=== PATIENT | male | born 1960 | race Caucasian/White ===

== ENCOUNTER → 2020-04-18 10:38 | Outpatient (BNVA) | payer MEDICARE, MEDICAID, SELFPAY | PROVIDERS: Family Provider Nurse Practitioner; PCP Nurse Practitioner; Visit Provider Nurse Practitioner Family | DX: M54.2 Cervicalgia (principal); G89.29 Other chronic pain; R20.2 Paresthesia of skin; R63.4 Abnormal weight loss; I10 Essential (primary) hypertension; E78.2 Mixed hyperlipidemia; Z86.73 Personal history of transient ischemic attack (TIA), and cerebral infarction without residual deficits; R42 Dizziness and giddiness; Z12.5 Encounter for screening for malignant neoplasm of prostate; Z12.11 Encounter for screening for malignant neoplasm of colon; F41.9 Anxiety disorder, unspecified; M17.0 Bilateral primary osteoarthritis of knee; E03.8 Other specified hypothyroidism; K21.9 Gastro-esophageal reflux disease without esophagitis | CPT/HCPCS: 80053; 80061; 84443; 85025; G0103 ==

== ENCOUNTER → 2020-04-19 10:21 | Outpatient (BNVA) | payer MEDICARE, MEDICAID, SELFPAY | PROVIDERS: Family Provider Nurse Practitioner; PCP Nurse Practitioner; Visit Provider Nurse Practitioner Family | DX: R73.9 Hyperglycemia, unspecified (principal) | CPT/HCPCS: 83036 ==

== ENCOUNTER → 2020-04-25 15:03 | Outpatient (BNVA) | payer MEDICARE, MEDICAID, SELFPAY | PROVIDERS: Family Provider Nurse Practitioner; PCP Nurse Practitioner; Visit Provider Nurse Practitioner Family | DX: M54.2 Cervicalgia (principal); R63.4 Abnormal weight loss | CPT/HCPCS: 71046; 72040 ==

== ENCOUNTER 2020-05-07 14:35 | Outpatient (CLI) | payer MEDICARE, MEDICAID, SELFPAY ==
--- NOTE | 2020-05-07 15:00 | USCV_ITS ---
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 Technologist: Gisela Khan Exam Location: [facility] [place] Indication: HTN Risk Factors: Previous Vascular Surgery: Right Brachial BP: / Left Brachial BP: / Right Left Velocity (cm/s) Spectral Plaque Velocity (cm/s) Spectral Plaque Syst/Diast Broadening Syst/Diast Broadening 94.70/ 24.40 Prox CCA 111.40/ 37.50 87.10/ 27.60 Mid CCA 93.70 / 28.70 69.60/ 21.30 Distal CCA 90.60 / 34.20 55.50/ 26.50 Prox ICA 60.30 / 21.10 66.90/ 30.70 Mid ICA 65.80 / 33.30 63.60/ 32.90 Distal ICA 52.30 / 25.50 70.10 ECA 91.90 0.71 ICA/CCA 0.59 Antegrade Vertebral Antegrade 41.90/ 16.30 cm/s 30.90/ 15.10 cm/s Tri Subclavian Tri 74.20 69.70 CONCLUSIONS Right ICA stenosis <50%. Mild atheromatous plaque right carotid bulb/ICA. Left ICA stenosis <50%. Moderate atheromatous plaque left carotid bulb/ICA. Normal antegrade Doppler flow noted in the right vertebral artery. Normal antegrade Doppler flow noted in the left vertebral artery. Tommy Meredith MD (Electronically Signed) Final Date: 07 May 2020 17:50 S
== END 2020-05-07 14:36 | disposition home or self-care (01) ==
PROVIDERS: PCP Nurse Practitioner Family; Visit Provider Nurse Practitioner Family
DX: I10 Essential (primary) hypertension (principal); I65.23 Occlusion and stenosis of bilateral carotid arteries
CPT/HCPCS: 93880

== ENCOUNTER → 2020-05-17 11:20 | Outpatient (BNVA) | payer MEDICARE, MEDICAID, SELFPAY | PROVIDERS: PCP Nurse Practitioner Family; Visit Provider Surgery | DX: Z12.11 Encounter for screening for malignant neoplasm of colon (principal); Z20.822 Contact with and (suspected) exposure to COVID-19 | CPT/HCPCS: 87635 ==

== ENCOUNTER 2020-05-24 10:00 | Day surgery (SDC) | payer MEDICARE, MEDICAID, SELFPAY ==
[2020-05-18 12:37] VITALS: BMI 44.9
[2020-05-24 10:26] VITALS: BP 124/95; PULSE 102; RESP 16; TEMP 36.7; O2SAT 98
[2020-05-24] MEDS: sodium chloride 0.9% 1,000 ML 30 ML IV (11:23)
[2020-05-24 11:45] LABS: Glucose Point of Care 163 mg/dL (70-110)
--- NOTE | 2020-05-24 11:45 | ANES.PREANE2 ---
Pre-Anesthetic Assessment Pre-Anesthetic Assessment: Height/Weight: Height 1.78 m Weight 141.974 kg Temp Pulse Resp BP Pulse Ox 98.0 F 102 H 16 124/95 98 05/24/20 10:26 05/24/20 10:26 05/24/20 10:26 05/24/20 10:26 05/24/20 10:26 Preop Diagnosis: screening colonoscopy Proposed Procedure: Operation Date: 05/24/20 11:30 Proposed Procedures p Colonoscopy 61719 z12.11(Not Applicable) - Fuentes Keene MD Was Beta Ramesh taken within 24 hours: N/A Was Clonidine taken within 24 hours: N/A Last intake: Intake Last Liquid Date 05/23/20 Last Liquid Time 23:00 Last Solid Date 05/22/20 Last Solid Time 20:00 Social: Social History: No alcohol and No tobacco Exam: Pre-Anes Outpt Exam: alert, oriented x 3, clear to auscultation bilaterally and regular rate & rhythm Airway: Submandibular: WNL Cervical ROM: WNL MP: 2 Additional comments: Poor dentition, missing several CV/HEM: CV/HEM: HTN Metabolic: Metabolic: DM, Morbid obesity and Thyroid Neuropsych: Neuropsych: Anxiety and TIA Anesthetic Plan: ASA status: 3 Anesthesia: MAC Risk of > 500 ml blood loss (7ml/kg in children): No Meds/Allergies Current Medications: Current Medications Generic Name Dose Route Start Last Admin Trade Name Freq PRN Reason Stop Dose Admin Sodium Chloride 1,000 mls @ 30 ml s/hr 05/24/20 10:30 05/24/20 11:23 Sodium Chloride 0.9% IV 05/25/20 10:29 30 mls/hr .Q24H MISHA Administration PFSH Anesthesia PFSH: Medical History Adult onset hypothyroidism Anxiety Atherosclerosis Essential hypertension GERD (gastroesophageal reflux disease) Mixed hyperlipidemia Osteoarthritis Surgical History History of hernia repair Family History Other Cancer Diabetes Social History Smoking and tobacco status: never smoked Second hand smoke exposure: No Alcohol intake: never Lives independently: Yes Household members: spouse Housing: House Marital status: History of recent travel: No Data Anesthesia Other Labs: Laboratory Results - last 48 hr 05/24/20 11:25 POC Glucose 163 H Cardiac Studies: No Data to Display
[2020-05-24 12:05] VITALS: BP 98/68; PULSE 90; RESP 18; TEMP 36.4; O2SAT 97
--- NOTE | 2020-05-24 12:08 | ANE.PACU2 ---
Inpatient post-anesthesia follow up: Airway intact: Yes Vital signs: Temperature 98.0 F Pulse Rate 102 Respiratory Rate 16 Blood Pressure 124/95 Pulse Oximetry 98 Oxygen Delivery Me thod Room Air Oxygen Flow Rate Fraction of Inspir ed Oxygen Hydration adequate: Yes Nausea and vomiting: No Pain level: 1 Mental status: Baseline
[2020-05-24 12:20] VITALS: BP 110/84; PULSE 82; RESP 18; TEMP 36.6; O2SAT 96
--- NOTE | 2020-05-24 14:37 | ANE.PACU2 ---
Inpatient post-anesthesia follow up: Airway intact: Yes Vital signs: Temperature 97.8 F Pulse Rate 82 Respiratory Rate 18 Blood Pressure 110/84 Pulse Oximetry 96 Oxygen Delivery Me thod Room Air Oxygen Flow Rate 2 Fraction of Inspir ed Oxygen Hydration adequate: Yes Nausea and vomiting: No Pain level: 1 Mental status: Baseline
--- NOTE | 2020-05-24 14:40 | W.PM.OPSFHP ---
Same Day Surgery H&P Indication for Procedure/HPI DATE OF PROCEDURE: May 24, 2020 CHIEF COMPLAINT/INDICATIONFOR SURGICAL PROCEDURE: screening PREOP DIAGNOSIS: screening colonoscopy PLANNED PROCEDRUE: Operation Date: 05/24/20 11:30 Proposed Procedures p Colonoscopy 39993 z12.11(Not Applicable) - Fuentes Keene MD Medications/Allergies* Home Medications Medication Instructions Recorded Confirmed Type ascorbate calcium (vitamin C) 500 500 mg PO DAILY 05/08/20 05/24/20 History mg tablet cholecalciferol (vitamin D3) 25 25 mcg PO DAILY 05/08/20 05/24/20 History mcg (1,000 unit) capsule zinc 50 mg tablet 50 mg PO DAILY 05/08/20 05/24/20 History aspirin 81 mg PO DAILY 05/24/20 05/24/20 History Allergies/Adverse Reactions Allergy/AdvReac Type Severity Reaction Status Date / Time No Known Allergies Allergy Verified 05/24/20 10:48 Pertinent History/Comorbid Conditions* Medical History (Updated 05/08/20 @ 11:18 by SILAS Martinez) Adult onset hypothyroidism Anxiety Atherosclerosis Essential hypertension GERD (gastroesophageal reflux disease) Mixed hyperlipidemia Osteoarthritis Surgical History (Updated 05/24/20 @ 12:04 by Fuentes Keene MD) History of hernia repair Status post colonoscopy (05/24/20) polyps x 2 , internal hemorrhoids Family History (Updated 07/04/19 @ 14:04 by Melba Ferraro LPN) Diabetes Cancer Social History Smoking and tobacco status: never smoked Second hand smoke exposure: No Alcohol intake: never Lives independently: Yes Household members: spouse Housing: House Marital status: History of recent travel: No Pertinent Exam Findings alert, oriented x 3 and regular rate & rhythm Recommendations Surgery/Procedure today Coding Level of Care Code Acute Test Administrator for Chg Alberto
== END 2020-05-24 12:55 | disposition home or self-care (01) ==
PROVIDERS: PCP Nurse Practitioner Family; Visit Provider Surgery
PROC: 0DJD8ZZ Inspection of Lower Intestinal Tract, Via Natural or Artificial Opening Endoscopic (ICD-10-PCS; CPT 45378; principal; 2020-05-24 11:30)
DX: Z12.11 Encounter for screening for malignant neoplasm of colon (principal); D12.2 Benign neoplasm of ascending colon; K64.8 Other hemorrhoids; E03.9 Hypothyroidism, unspecified; F41.9 Anxiety disorder, unspecified; I10 Essential (primary) hypertension; K21.9 Gastro-esophageal reflux disease without esophagitis; E78.2 Mixed hyperlipidemia; M19.90 Unspecified osteoarthritis, unspecified site
CPT/HCPCS: 36416; 45380; 82962; 88305; 96360; J2704; J7030

== ENCOUNTER 2020-06-28 11:21 | Outpatient (CLI) | payer MEDICARE, MEDICAID, SELFPAY ==
--- NOTE | 2020-06-28 07:15 | USCV_ITS ---
Feliberto Tsai Age: 59 Gender: M : 1960 Exam Date: 06/28/2020 11:40 Ordering Phys: Livia Tong MD [email or web address]) Technologist: Ana Diaz [place] [facility] [place]: Cardiac murmur BP: 116 / 83 HR: 74 Rhythm: Sinus Technical Quality: Suboptimal MEASUREMENTS (Male / Female) Normal Values 2D ECHO LV Diastolic Diameter PLAX 4.4 cm 4.2 - 5.9 / 3.9 - 5.3 cm LV Systolic Diameter PLAX 2.8 cm LV Chamber Size 4.3 cm IVS Diastolic Thickness 1.4 cm 0.6 - 1.0 / 0.6 - 0.9 cm IVS Systolic Thickness 1.4 cm LVPW Diastolic Thickness 1.6 cm 0.6 - 1.0 / 0.6 - 0.9 cm LVPW Systolic Thickness 1.6 cm RV Chamber Size 1.7 cm LVOT Diameter 2.2 cm LV Ejection Fraction 2D Teich 68.6 % LV Ejection Fraction MOD 2C 55.4 % LV Ejection Fraction 2C AL 58.7 % LA Diameter 2.6 cm LA Width 3.5 cm LA Height 6.0 cm RA Width 2.7 cm RA Height 5.0 cm Aorta at Sinotubular Diameter 3.3 cm M-MODE LV Diastolic Diameter MM 5.9 cm 4.2 - 5.9 / 3.9 - 5.3 cm LV Systolic Diameter MM 4.3 cm LV Ejection Fraction MM Teich 52.4 % IVS Diastolic Thickness MM 1.4 cm 0.6 - 1.0 / 0.6 - 0.9 cm IVS Systolic Thickness MM 1.3 cm LVPW Diastolic Thickness MM 1.4 cm 0.6 - 1.0 / 0.6 - 0.9 cm LVPW Systolic Thickness MM 1.9 cm Aortic Annulus Diameter 3.7 cm LA Ao Ratio MM 0.8 MV E Point Septal Separation 0.8 cm DOPPLER AV Peak Velocity 255.3 cm/s LVOT Peak Velocity 99.0 cm/s AV Area Cont Eq vti 1.6 cm squared AV Area Cont Eq pk 1.4 cm squared MV Area PHT 4.1 cm squared Mitral E to A Ratio 1.0 MV E' Velocity 47.0 cm/s Mitral E to MV E' Ratio 7.9 Mitral E to LV E' Lateral Ratio 6.4 Mitral E to LV E' Septal Ratio 10.4 TV Peak E Velocity 45.0 cm/s Right Atrial Pressure 3.0 mmHg PV Peak Velocity 65.0 cm/s RV Acceleration Time 0.1 s RV Ejection Time 0.3 s RV AcT/ET 0.3 FINDINGS Left Ventricle Normal left ventricular cavity size. Mildly decreased left ventricular systolic function. Left ventricular ejection fraction is estimated at 45-50 %. This study is inadequate for estimation of regional wall motion normality. Normal diastolic function. Right Ventricle Normal right ventricular size and systolic function. RVSP could not be calculated due to incomplete tricuspid regurgitation velocity profile. Right Atrium Normal right atrial size. Right atrial pressure estimated at 3 mmHg. Left Atrium Mildly increased left atrial size. Mitral Valve Structurally normal mitral valve. No mitral valve stenosis. Trace mitral valve regurgitation. Aortic Valve Aortic valve not well visualized. Mild aortic valve stenosis, peak velocity 2.6 m/s, peak gradient 28 mmHg, mean gradient 14.3 mmHg, REBA 1.6 cm squared. Trace aortic valve regurgitation. Tricuspid Valve Pulmonic Valve Pulmonic valve not well visualized. No pulmonary valve stenosis. Pericardium No pericardial effusion. Aorta Normal-sized aortic root. Normal-sized inferior vena cava. CONCLUSIONS 1. This is a technically difficult study. 2. Normal left ventricular cavity size. Mildly decreased left ventricular systolic function. Left ventricular ejection fraction is estimated at 45-50 %. This study is inadequate for estimation of regional wall motion normality. Normal diastolic function. 3. Normal right ventricular size and systolic function. 4. Mild aortic valve stenosis, peak velocity 2.6 m/s, peak gradient 28 mmHg, mean gradient 14.3 mmHg, REBA 1.6 cm squared. Trace aortic valve regurgitation. 5. Repeat study is recommended with ultrasound enhancing agent. 6. No prior similar studies to compare. Livia Tong MD (Electronically Signed) Final Date: 29 Jun 2020 13:07 S
== END 2020-06-28 11:22 | disposition home or self-care (01) ==
LOC: RAD 11:26
PROVIDERS: PCP Nurse Practitioner Family; Visit Provider Internal Medicine Cardiovascular Disease
DX: R01.1 Cardiac murmur, unspecified (principal); I35.0 Nonrheumatic aortic (valve) stenosis
CPT/HCPCS: 93306

== ENCOUNTER 2020-07-09 08:46 | Outpatient (CLI) | payer MEDICARE, MEDICAID, SELFPAY ==
--- NOTE | 2020-07-09 09:11 | ECG_ITS ---
[facility] Test Date: 2020-07-09 Pat Name: Feliberto Tsai Department: Room: Gender: Male H[employer]icultural [employer]ty [employer]er Field: : 1960 Requested By: Livia Tong Order Number: [id number] Chelly MD: Livia Tong M.D. Interpretive Statements NAME OF STUDY: LEXISCAN SESTAMIBI STRESS TEST INDICATION: Dyspnea on exertion PROCEDURE: At the baseline, the blood pressure was 158/106 mmHg with a heart rate of 81 bpm. The electrocardiogram showed normal sinus rhythm, normal axis with nonspecific ST depression. The Lexiscan was infused over a period of 20 seconds. A total of 0.4 milligrams of Lexiscan was infused. The stress phase was continued for a total of 5 minutes. Heart rate at the end of the stress phase was 98 bpm with a blood pressure of 169/102 mmHg. The EKG at the peak infusion revealed sinus rhythm with no significant ST-T wave changes. Sestamibi was injected 20 seconds after the Lexiscan infusion. Blood pressure at the end of the recovery phase was 179/101 mmHg with a heart rate of 90 beats per minute. CONCLUSION: 1. No significant EKG changes with the LexiScan infusion. 2. No LexiScan induced chest pain or cardiac arrhythmia. 3. Baseline hypertension with normal blood pressure and heart rate response. 4. Sestamibi/sestamibi perfusion scan pending; see separate report. Electronically Signed On 07-12-2020 17:33:09 CDT by Livia Tong M.D. [id number]
--- NOTE | 2020-07-09 09:11 | NMCV_ITS ---
NM thelma perf SPECT r/s* [id number] Feliberto Tsai Age: 59 Gender: M : 1960 Exam Date: 07/09/2020 09:54 Ordering Phys: Livia Tong MD ([email or web address]) Technologist: AURORA Nesbitt Exam Location: [facility] Indications: SHORTNESS OF BREATH STRESS TEST Please see separate stress test report in [facility] for full findings IMAGE PROTOCOL Rest/Stress 1 Lexiscan Day Radiopharmaceutical Dose (mCi) Administration Site Administered by Rest: Tc-99m 10.7 IV AURORA Nesbitt Sestamibi Stress:Tc-99m 33.0 IV AURORA Avitia Sestamibi Rest: 09-Jul-2020 60 Discovery 630 Stress: 09-Jul-2020 30 Discovery 630 0.4mg Lexiscan. Images obtained in supine and prone position. SPECT RESULTS Technical Quality: Excellent Raw Data Analysis: Normal Image Corrections: No attenuation or motion correction applied Summed Stress Score: 3 Summed Rest Score: 1 Summed Difference Score: 2 PERFUSION FINDINGS Small sized perfusion abnormality of mild severity of basal to mid inferior and apical lateral finnegan on rest images. There is subtle reversibility in apical lateral finnegan on prone stress images. FUNCTIONAL RESULTS (calculated via Gated SPECT) Stress Image LV EF (%): 69 Stress EDV (mL):108 TID: 0.96 Stress ESV (mL):34 FUNCTIONAL FINDINGS: The left ventricle is normal in size. Transient Ischemia Dilatation of 0.96. There is normal left ventricular systolic function. The left ventricular ejection fraction is normal with a value of 69%. There is normal left ventricular wall thickening with no regional wall motion abnormality. Normal end-diastolic and end-systolic volumes. IMPRESSIONS 1. Small sized reversible perfusion abnormality of mild severity of apical lateral wall and predominantly fixed perfusion abnormality of basal to mid inferior finnegan. 2. This may represent old myocardial infarction in right coronary artery territory/circumflex artery territory with minimal john-infarct ischemia. Attenuation artifact cannot be completely ruled out. 3. Overall left ventricular systolic function is normal without regional wall motion abnormalities. 4. The left ventricular ejection fraction is normal with a value of 69%. 5. No prior similar studies to compare. Livia Tong MD (Electronically Signed) Final Date: 12 Jul 2020 17:42 S
[2020-07-09 09:13] VITALS: BMI 44.3
[2020-07-09] MEDS: regadenoson 0.4 Mg/5 ml Syringe IVP (10:56)
[2020-07-09 11:08] VITALS: BP 179/101; PULSE 94
== END 2020-07-09 08:47 | disposition home or self-care (01) ==
LOC: CDL 08:48
PROVIDERS: PCP Nurse Practitioner Family; Visit Provider Internal Medicine Cardiovascular Disease
DX: R06.00 Dyspnea, unspecified (principal)
CPT/HCPCS: 78452; 93017; A9500; J2785

== ENCOUNTER → 2020-07-30 09:20 | Outpatient (BNVA) | payer MEDICARE, MEDICAID, SELFPAY | PROVIDERS: PCP Nurse Practitioner Family; Visit Provider Nurse Practitioner Family | DX: E11.9 Type 2 diabetes mellitus without complications (principal); E78.2 Mixed hyperlipidemia; E03.8 Other specified hypothyroidism; I10 Essential (primary) hypertension; F41.9 Anxiety disorder, unspecified; K21.9 Gastro-esophageal reflux disease without esophagitis; M17.0 Bilateral primary osteoarthritis of knee | CPT/HCPCS: 80053; 80061; 83036; 84443; 85025 ==

== ENCOUNTER → 2020-11-02 10:53 | Outpatient (BNVA) | payer MEDICARE, MEDICAID, SELFPAY | PROVIDERS: PCP Nurse Practitioner Family; Visit Provider Nurse Practitioner Family | DX: I10 Essential (primary) hypertension (principal); E11.9 Type 2 diabetes mellitus without complications; K21.9 Gastro-esophageal reflux disease without esophagitis; F41.9 Anxiety disorder, unspecified; E03.8 Other specified hypothyroidism; M17.0 Bilateral primary osteoarthritis of knee; E78.2 Mixed hyperlipidemia | CPT/HCPCS: 80053; 80061; 83036; 84443; 85025 ==

== ENCOUNTER → 2021-01-29 09:09 | Outpatient (BNVA) | payer MEDICARE, MEDICAID, SELFPAY | PROVIDERS: PCP Nurse Practitioner Family; Visit Provider Nurse Practitioner Family | DX: Z12.5 Encounter for screening for malignant neoplasm of prostate (principal); E78.2 Mixed hyperlipidemia; E03.8 Other specified hypothyroidism; E11.9 Type 2 diabetes mellitus without complications; R42 Dizziness and giddiness; F41.9 Anxiety disorder, unspecified; I10 Essential (primary) hypertension; K21.9 Gastro-esophageal reflux disease without esophagitis; M17.0 Bilateral primary osteoarthritis of knee | CPT/HCPCS: 80053; 80061; 83036; 84443; 85025; G0103 ==

== ENCOUNTER → 2021-07-19 10:02 | Outpatient (BNVA) | payer MEDICARE, MEDICAID, SELFPAY | PROVIDERS: PCP Nurse Practitioner Family; Visit Provider Nurse Practitioner Family | DX: F41.9 Anxiety disorder, unspecified (principal); M54.50 Low back pain, unspecified; M25.552 Pain in left hip; E11.9 Type 2 diabetes mellitus without complications; E78.2 Mixed hyperlipidemia; I10 Essential (primary) hypertension; E03.8 Other specified hypothyroidism; K21.9 Gastro-esophageal reflux disease without esophagitis; M17.0 Bilateral primary osteoarthritis of knee | CPT/HCPCS: 80053; 80061; 83036; 84443; 85025 ==

== ENCOUNTER → 2021-07-24 10:38 | Outpatient (BNVA) | payer MEDICARE, MEDICAID, SELFPAY | PROVIDERS: PCP Nurse Practitioner Family; Visit Provider Nurse Practitioner Family | DX: M25.552 Pain in left hip (principal); M54.50 Low back pain, unspecified | CPT/HCPCS: 72100; 73502 ==

== ENCOUNTER → 2021-10-29 09:39 | Outpatient (BNVA) | payer MEDICARE, MEDICAID, SELFPAY | PROVIDERS: PCP Nurse Practitioner Family; Visit Provider Nurse Practitioner Family | DX: E11.9 Type 2 diabetes mellitus without complications (principal); E78.2 Mixed hyperlipidemia | CPT/HCPCS: 80053; 80061; 83036; 84443; 85025 ==

== ENCOUNTER → 2022-04-28 09:36 | Outpatient (BNVA) | payer MEDICARE, MEDICAID, SELFPAY | PROVIDERS: PCP Nurse Practitioner Family; Visit Provider Nurse Practitioner Family | DX: E11.9 Type 2 diabetes mellitus without complications (principal) | CPT/HCPCS: 80053; 80061; 83036; 84443; 85025 ==

== ENCOUNTER 2022-05-26 12:24 | Outpatient (CLI) | payer MEDICARE, MEDICAID, SELFPAY ==
--- NOTE | 2022-05-26 13:00 | USCV_ITS ---
Feliberto Tsai Age: 61 Gender: M : 1960 Exam Date: 05/26/2022 13:02 Ordering Phys: Chhaya Kraft Technologist: Exam Location: [facility] [place] Indication: as BP: 118 / 72 HR: 86 Rhythm: Sinus Technical Quality: Adequate MEASUREMENTS (Male / Female) Normal Values 2D ECHO LV Diastolic Diameter PLAX 4.5 cm 4.2 - 5.9 / 3.9 - 5.3 cm LV Systolic Diameter PLAX 2.9 cm IVS Diastolic Thickness 1.2 cm 0.6 - 1.0 / 0.6 - 0.9 cm IVS Systolic Thickness 2.0 cm LVPW Diastolic Thickness 1.1 cm 0.6 - 1.0 / 0.6 - 0.9 cm LVPW Systolic Thickness 1.5 cm LVOT Diameter 2.1 cm LV Ejection Fraction 2D Teich 64.1 % LV Ejection Fraction MOD 2C 74.6 % LV Ejection Fraction 2C AL 74.4 % LA Diameter 4.0 cm IVC Diameter 1.6 cm M-MODE Aortic Annulus Diameter 4.1 cm LA Ao Ratio MM 0.9 MV E Point Septal Separation 0.8 cm DOPPLER AV Peak Velocity 322.0 cm/s LVOT Peak Velocity 118.7 cm/s AV Area Cont Eq vti 1.4 cm squared AV Area Cont Eq pk 1.3 cm squared MV Area PHT 5.0 cm squared Mitral E to A Ratio 0.6 MV E' Velocity 29.5 cm/s Mitral E to MV E' Ratio 7.9 Mitral E to LV E' Lateral Ratio 7.5 Mitral E to LV E' Septal Ratio 8.4 TR Peak Velocity 253.2 cm/s TR Peak Gradient 25.6 mmHg TV Peak E Velocity 98.0 cm/s Right Atrial Pressure 3.0 mmHg Pulmonary Artery Systolic Pressu 28.6 mmHg RV Acceleration Time 0.1 s FINDINGS Left Ventricle Left ventricle is normal in size. LV systolic function is normal with EF of 55-60%. No regional wall motion abnormalities are seen. Grade 1 diastolic dysfunction Right Ventricle Normal in size and function Right Atrium Normal in size Left Atrium Normal in size Mitral Valve Structurally normal mitral valve Aortic Valve Aortic valve is thickened. Moderate aortic stenosis with aortic valve area of 0.7 cm squared and mean gradient across aortic valve of 16 mmHg. Tricuspid Valve Mild tricuspid regurgitation. Pulmonary artery systolic pressure is normal. Pulmonic Valve Not well-visualized Pericardium Normal Aorta Normal in size IVC Appears to be normal CONCLUSIONS LV systolic function is normal with EF of 60 to 65% Grade 1 diastolic dysfunction Aortic valve is thickened. Moderate aortic stenosis with valve area of 0.7 cm squared and mean gradient across aortic valve of 16 mmHg Mild tricuspid regurgitation Compared to prior echocardiogram from 2020, aortic stenosis has worsened and is moderate now. LV systolic function is improved compared to reported on 2020 echo. Donavan Henderson MD (Electronically Signed) Final Date: 07 June 2022 14:27 S
== END 2022-05-26 12:25 | disposition home or self-care (01) ==
LOC: RAD 12:26
PROVIDERS: PCP Nurse Practitioner Family; Visit Provider Nurse Practitioner Family
DX: R01.1 Cardiac murmur, unspecified (principal); I08.2 Rheumatic disorders of both aortic and tricuspid valves
CPT/HCPCS: 80053; 80061; 83036; 84443; 85025; 93306

== ENCOUNTER → 2022-06-18 10:37 | Outpatient (BNVA) | payer MEDICARE, MEDICAID, SELFPAY | PROVIDERS: PCP Nurse Practitioner Family; Visit Provider Internal Medicine Cardiovascular Disease | DX: I35.0 Nonrheumatic aortic (valve) stenosis (principal); I10 Essential (primary) hypertension; Z79.82 Long term (current) use of aspirin | CPT/HCPCS: 99213 ==

== ENCOUNTER → 2022-10-31 11:02 | Outpatient (BNVA) | payer MEDICARE, MEDICAID, SELFPAY | PROVIDERS: PCP Nurse Practitioner Family; Visit Provider Nurse Practitioner Family | DX: K21.9 Gastro-esophageal reflux disease without esophagitis (principal); E11.9 Type 2 diabetes mellitus without complications; I10 Essential (primary) hypertension; E03.8 Other specified hypothyroidism; M17.0 Bilateral primary osteoarthritis of knee; F41.9 Anxiety disorder, unspecified; E78.2 Mixed hyperlipidemia; I35.0 Nonrheumatic aortic (valve) stenosis; R01.1 Cardiac murmur, unspecified; I70.90 Unspecified atherosclerosis; E83.51 Hypocalcemia; Z12.5 Encounter for screening for malignant neoplasm of prostate | CPT/HCPCS: 80053; 80061; 83036; 84443; 85025 ==

== ENCOUNTER → 2023-04-29 13:40 | Outpatient (BNVA) | payer MEDICARE, MEDICAID, SELFPAY | PROVIDERS: PCP Nurse Practitioner Family; Visit Provider Nurse Practitioner Family | DX: M17.11 Unilateral primary osteoarthritis, right knee (principal); M25.561 Pain in right knee; M25.562 Pain in left knee; E11.9 Type 2 diabetes mellitus without complications; R35.1 Nocturia | CPT/HCPCS: 73562; 80053; 80061; 83036; 84443; 85025 ==

== ENCOUNTER → 2023-06-16 11:45 | Outpatient (BNVA) | payer MEDICARE, MEDICAID, SELFPAY | PROVIDERS: PCP Nurse Practitioner Family; Visit Provider Internal Medicine Cardiovascular Disease | DX: I10 Essential (primary) hypertension (principal); E78.2 Mixed hyperlipidemia; I35.0 Nonrheumatic aortic (valve) stenosis; R06.00 Dyspnea, unspecified; F41.9 Anxiety disorder, unspecified; E11.9 Type 2 diabetes mellitus without complications; Z79.84 Long term (current) use of oral hypoglycemic drugs | CPT/HCPCS: 99213 ==

== ENCOUNTER → 2023-07-22 15:23 | Outpatient (BNVA) | payer MEDICARE, MEDICAID, SELFPAY | PROVIDERS: PCP Nurse Practitioner Family; Visit Provider Specialist | DX: M17.0 Bilateral primary osteoarthritis of knee (principal); E66.01 Morbid (severe) obesity due to excess calories; Z68.41 Body mass index [BMI] 40.0-44.9, adult | CPT/HCPCS: 73560; 73565 ==

== ENCOUNTER 2023-08-24 07:36 | Outpatient (CLI) | payer MEDICARE, MEDICAID, SELFPAY ==
--- NOTE | 2023-08-24 08:00 | MR_ITS ---
WS: [id number] MRI RIGHT KNEE HISTORY: pain Patient in pain during the examination the study was shortened due to discomfort. COMPARISON: Radiograph 07/22/2023 Anterior cruciate ligament: Thickening and mucoid degeneration throughout the ACL. Normal course of t he ACL. The very distal ACL attachment is difficult to visualize. No definite tear. Posterior cruciate ligament: Intact. Medial collateral ligament: Intact. Posterior lateral corner structures: Intact. There is a small amount of fluid along the popliteus ten don but no tear identified. Medial menisci: Horizontal tear in the posterior meniscus extends to the intra-articular surface. The re is also intrasubstance degeneration extending into the meniscal root. Anterior horn appears normal . Lateral meniscus: Intact. Normal signal, size and shape. Extensor mechanism: Distal quadriceps tendon and patellar tendons are intact. Fluid and soft tissue: No joint effusion. Tiny amount of fluid consistent with a Handy's cyst. Osseous and articular structures: Patellofemoral compartment: Minimal narrowing of the lateral patellofemoral junction. The cartilage i s well-preserved. No marrow edema. Medial compartment: Mild narrowing of the medial compartment. There is thinning and fissuring of the cartilage. Greatest along the weightbearing surface of the femoral condyle. No underlying marrow josr a. No osteochondral lesion. Lateral compartment: Mild narrowing of the lateral compartment. Cartilage is well-preserved. No marro w edema. MR/MR knee RT wo con* [id number] IMPRESSION: 1. Horizontal tear posterior horn medial meniscus extends to the intra-articul ar surface. 2. Mucoid degeneration within the ACL. No tear identified. The very distal ACL is poorly visualized. 3. Small amount of fluid in the popliteus tendon but the tendon itself appears intact. 4. Mild narrowing of the medial and lateral compartments. Greatest chondromala chyna involving the weightbearing surface of the medial femoral condyle. No fract ure or marrow edema.
== END 2023-08-24 07:37 | disposition home or self-care (01) ==
PROVIDERS: PCP Nurse Practitioner Family; Visit Provider Specialist
DX: M17.0 Bilateral primary osteoarthritis of knee (principal); M94.261 Chondromalacia, right knee; E66.01 Morbid (severe) obesity due to excess calories; Z68.41 Body mass index [BMI] 40.0-44.9, adult
CPT/HCPCS: 73721; 99204

== ENCOUNTER → 2023-09-21 09:40 | Outpatient (BNVA) | payer MEDICARE, MEDICAID, SELFPAY | PROVIDERS: PCP Nurse Practitioner Family; Visit Provider Specialist | DX: M17.0 Bilateral primary osteoarthritis of knee (principal) | CPT/HCPCS: 20610; 99214; J1100; J2795; J3301 ==

== ENCOUNTER → 2023-10-28 09:51 | Outpatient (BNVA) | payer MEDICARE, MEDICAID, SELFPAY | PROVIDERS: PCP Nurse Practitioner Family; Visit Provider Nurse Practitioner Family | DX: Z12.5 Encounter for screening for malignant neoplasm of prostate (principal); E11.9 Type 2 diabetes mellitus without complications; I10 Essential (primary) hypertension; R06.00 Dyspnea, unspecified | CPT/HCPCS: 80053; 80061; 83036; 84443; 85025; G0103 ==

== ENCOUNTER 2023-11-06 11:03 | Outpatient (CLI) | payer MEDICARE, MEDICAID, SELFPAY ==
--- NOTE | 2023-11-06 11:13 | XR_ITS ---
WS: [id number] XR shoulder RT min 2V* [id number] REASON FOR EXAM: M25.511 - Pain in right shoulder FINDINGS: Acromioclavicular joint space is intact. There is mild subchondral sclerosis and moderate osteophytos is. Downward slant orientation of the acromial process. There is moderate asymmetric narrowing of the glenohumeral joint space with significant subchondral c ystic change in the glenoid. There is mild osteophytosis of the humeral head. There is moderate sclerosis and cystic change in the greater biceps tuberosity. XR/XR shoulder RT min 2V* [id number] IMPRESSION: Moderate osteoarthritis of the glenohumeral joint.The configuration of the acro mion and the acromioclavicular joint create the potential for anterior impingem ent. There is moderate rotator cuff tendon arthropathy. Significant osteoarthritis in the glenohumeral joint.
== END 2023-11-06 11:04 | disposition home or self-care (01) ==
LOC: RAD 11:07
PROVIDERS: PCP Nurse Practitioner Family; Visit Provider Nurse Practitioner Family
DX: M19.011 Primary osteoarthritis, right shoulder (principal)
CPT/HCPCS: 73030

== ENCOUNTER → 2024-05-03 10:02 | Outpatient (BNVA) | payer MEDICARE, MEDICAID, SELFPAY | PROVIDERS: PCP Nurse Practitioner Family; Visit Provider Nurse Practitioner Family | DX: R06.00 Dyspnea, unspecified (principal); E11.9 Type 2 diabetes mellitus without complications; I10 Essential (primary) hypertension; E78.2 Mixed hyperlipidemia; E03.8 Other specified hypothyroidism; M17.0 Bilateral primary osteoarthritis of knee; M25.561 Pain in right knee; G89.29 Other chronic pain; K21.9 Gastro-esophageal reflux disease without esophagitis | CPT/HCPCS: 80053; 80061; 83036; 84443; 85025 ==

== ENCOUNTER → 2024-05-13 10:56 | Outpatient (BNVA) | payer MEDICARE, MEDICAID, SELFPAY | PROVIDERS: PCP Nurse Practitioner Family; Referring Provider Nurse Practitioner Family; Visit Provider Nurse Practitioner Family | DX: M25.561 Pain in right knee (principal); M25.562 Pain in left knee; G89.29 Other chronic pain; M17.0 Bilateral primary osteoarthritis of knee; F17.200 Nicotine dependence, unspecified, uncomplicated | CPT/HCPCS: 99214 ==

== ENCOUNTER 2024-05-24 06:00 | Outpatient (RCR) | payer MEDICARE, MEDICAID, SELFPAY | END 2024-06-22 23:59 | disposition home or self-care (01) | LOC: TPT 06:00 | PROVIDERS: PCP Nurse Practitioner Family; Visit Provider Nurse Practitioner Family | DX: M25.561 Pain in right knee (principal); G89.29 Other chronic pain; M25.562 Pain in left knee | CPT/HCPCS: 20553; 20610; 99214; J1010; J3490 ==

== ENCOUNTER → 2024-07-11 10:24 | Outpatient (BNVA) | payer MEDICARE, MEDICAID, SELFPAY | PROVIDERS: PCP Nurse Practitioner Family; Visit Provider Nurse Practitioner Family | DX: M25.561 Pain in right knee (principal); M25.562 Pain in left knee; G89.29 Other chronic pain | CPT/HCPCS: 99214 ==

== ENCOUNTER → 2024-07-29 10:39 | Outpatient (BNVA) | payer MEDICARE, MEDICAID, SELFPAY | PROVIDERS: PCP Nurse Practitioner Family; Visit Provider Orthopaedic Surgery | DX: M17.0 Bilateral primary osteoarthritis of knee (principal); M25.561 Pain in right knee; M25.562 Pain in left knee; G89.29 Other chronic pain; M21.161 Varus deformity, not elsewhere classified, right knee; M21.061 Valgus deformity, not elsewhere classified, right knee | CPT/HCPCS: 73560; 73565; 99214 ==

== ENCOUNTER 2024-08-22 11:46 | Outpatient (CLI) | payer MEDICARE, MEDICAID, SELFPAY ==
[2024-08-22 12:29] LABS: Basophils % 0.4 %; Eosinophils # 0.2 10^3/uL (0.0-0.8); Eosinophils % 1.6 %; Hematocrit 44.5 % (37-53); Lymphocytes # 2.4 10^3/uL (0.8-4.8); Lymphocytes % 24.4 %; Mean Corpuscular HGB Conc 33.5 g/dL (30-55); Mean Corpuscular Hemoglobin 31.4 pg (27-33); Mean Corpuscular Volume 93.7 fl (82-101); Mean Platelet Volume 11.1 fL (7.4-10.4); Monocytes # 0.8 10^3/uL (0.2-0.9); Monocytes % 7.7 %; Neutrophils # 6.56 10^3/uL (1.8-7.7); Neutrophils % 65.6 %; Nucleated Red Blood Cells % 0 %; Platelet Count 334 10^3/cmm (157-399); Red Blood Count 4.75 10^6/uL (3.85-5.65); Red Cell Distribution Width 13.1 % (12.1-15.1)
[2024-08-22 12:29] LABS: Bilirubin Urine Negative (Negative); Blood Urine Negative (Negative); Glucose Urine UA Negative (Normal); Ketones Urine Negative (Negative); Leukocyte Esterase Urine Negative (Negative); Nitrate Urine Negative (Negative); Protein Urine Negative (Negative); Specific Gravity, Urine 1.015 (1.005-1.030); Urine Appearance Clear (CLEAR); Urine Color Yellow (Yellow); Urobilinogen Urine 0.2 mg/dL (Negative)
[2024-08-22 12:32] LABS: Add Urine Microscopic? YES; Bacteria Urine None Seen /hpf; Hyaline Casts Urine 1.65 /lpf; RBC Urine 0-2 /hpf (0-2); Squamous Epithelial Cell Urine 0-5 /hpf (0-5); WBC Urine 0-5 /hpf (0-5)
[2024-08-22 12:46] LABS: Alanine Aminotransferase 14 U/L (0-41); Albumin Level 4.2 g/dL (3.5-5.2); Alkaline Phosphatase 111 U/L (40-130); Blood Urea Nitrogen 14 mg/dL (8-23); Calcium 9.8 mg/dL (8.5-10.5); Carbon Dioxide 22 mmol/L (22-29); Chloride 102 mmol/L (98-107); Globulin 3.9 g/dL (1.3-4.6); Glomerular Filtration Rate 85.5 mL/min (90-130); Glucose 123 mg/dL (65-115); Osmolality Calculated 286 mOsm/kg (285-295); Sodium 137 mmol/L (136-145); Total Bilirubin 0.5 mg/dL (0.15-1.2); Total Protein 8.1 g/dL (6.6-8.7)
[2024-08-22 12:48] LABS: Anion Gap 17.3 (5-19); Aspartate Amino Transferase 16 U/L (0-40); Potassium 4.3 mmol/L (3.5-5.1)
[2024-08-22 12:50] LABS: Estmated Average Glucose 128; Hemoglobin A1C 6.1 % (4.0-6.0)
== END 2024-08-22 11:47 | disposition home or self-care (01) ==
PROVIDERS: PCP Nurse Practitioner Family; Visit Provider Orthopaedic Surgery
DX: Z01.818 Encounter for other preprocedural examination (principal)
CPT/HCPCS: 36415; 80053; 81001; 83036; 85025

== ENCOUNTER 2024-08-23 05:00 | Outpatient (RCR) | payer MEDICARE, MEDICAID, SELFPAY | END 2024-09-22 23:59 | disposition home or self-care (01) | LOC: APT 05:00 | PROVIDERS: Visit Provider Orthopaedic Surgery | DX: Z47.1 Aftercare following joint replacement surgery (principal); Z96.651 Presence of right artificial knee joint | CPT/HCPCS: 97110; 97162; 97530 ==

== ENCOUNTER → 2024-08-23 13:52 | Outpatient (BNVA) | payer MEDICARE, MEDICAID, SELFPAY | PROVIDERS: PCP Nurse Practitioner Family; Visit Provider Family Medicine | DX: Z01.818 Encounter for other preprocedural examination (principal) | CPT/HCPCS: 93005 ==

== ENCOUNTER 2024-08-24 10:08 | Observation (INO) | payer MEDICARE, MEDICAID, SELFPAY ==
[2024-08-24] VITALS (21 sets, daily range): BP systolic 85–151; BP diastolic 63–122; PULSE 86–105; RESP 12–21; TEMP 36.1–36.7; O2SAT 96–100; BMI 37.7
--- NOTE | 2024-08-24 06:41 | ANES.PREANE2 ---
Pre-Anesthetic Assessment Height/Weight: Height 5 ft 10 in Weight 263 lb Temp Pulse Resp BP Pulse Ox O2 Del Method 97.2 F L 98 16 123/98 98 Room Air 08/24/24 06:03 08/24/24 06:03 08/24/24 06:03 08/24/24 06:28 08/24/24 06:03 08/24/24 06:03 Preop Diagnosis: Knee arthritis Operation Date: 08/24/24 07:00 Proposed Procedures p RIGHT Total Knee Arthroplasty(Right) - Blair Perez MD Was Beta Ramesh taken within 24 hours: N/A Was Clonidine taken within 24 hours: N/A Last intake: Intake Last Liquid Date 08/23/24 Last Liquid Time 20:30 Last Solid Date 08/23/24 Last Solid Time 20:30 Social No alcohol and No tobacco Exam alert and oriented x 3 Airway Submandibular: within normal limits Cervical ROM: within normal limits Mallampati: Class II Comments: Comments: Patient just had all his teeth pulled on 08/12/2024. Large saldana Anesthetic Plan ASA status: 4 Anesthesia: General Other: No prior issues with anesthesia NPO since yesterday evening History of GERD, on omeprazole Hypertension on lisinopril. Preop BP 123/98 Smokes marijuana Type 2 diabetes, no insulin. Preop BS 138 Labs 08/22/2024 reviewed acceptable for procedure EKG showing sinus tachycardia with occasional PVCs Echo 2022 showing EF of 55 to 60%. Aortic stenosis noted. Valve area of 0.7 Patient states that he is able to ambulate without SOB. Medications/Allergies Home Medications ?Medication ?Instructions ?Recorded ?Confirmed ?Last Taken ?Type blood sugar diagnostic (Blood #100 ea 04/25/20 08/23/24 Unknown Rx Glucose Test strips) blood-glucose meter (Blood Glucose #1 ea 04/25/20 08/23/24 Unknown Rx Monitoring kit) lancets 33 gauge (BD Ultra Fine #100 ea 04/25/20 08/23/24 Unknown Rx Lancets) aspirin 81 mg tablet 81 mg PO DAILY 05/24/20 08/23/24 08/09/24 History acetaminophen 500 mg capsule 1,000 mg PO Q6H PRN Pain 06/18/22 08/23/24 Unknown History diphenhydramine HCl 25 mg capsule 25 mg PO TID PRN Sleep 06/18/22 08/23/2408/22/25 History (Benadryl) ibuprofen 800 mg tablet 800 mg PO BID PRN pain 30 days #60 04/29/23 08/23/24 08/21/24 Rx tabs atorvastatin 10 mg tablet (Lipitor) 10 mg PO DAILY 30 days #30 tabs 05/03/24 08/23/24 08/23/24 Rx celecoxib 200 mg capsule (Celebrex) 200 mg PO BID #60 caps 05/03/24 08/23/24 08/22/24 Rx duloxetine 60 mg capsule,delayed 60 mg PO BID #60 caps 05/03/24 08/23/24 08/23/24 Rx release levothyroxine 50 mcg tablet 50 mcg PO DAILY 30 days #30 tabs 05/03/24 08/23/24 08/23/24 Rx (Synthroid) lisinopril 40 mg tablet 40 mg PO DAILY 30 days #30 tabs 05/03/24 08/23/24 08/23/24 Rx metformin 500 mg tablet 500 mg PO BID 30 days #60 tabs 05/03/24 08/23/24 08/23/24 Rx omeprazole 20 mg capsule,delayed 20 mg PO DAILY 30 days #30 caps 05/03/24 08/23/24 08/23/24 Rx release biotin 1,000 mcg chewable tablet 1,000 mcg PO DAILY 05/31/24 08/23/24 08/16/24 History Allergies Allergy/AdvReac Type Severity Reaction Status Date / Time No Known Allergies Allergy Verified 08/24/24 06:01 Current Medications Generic Name Dose Route Start Last Admin Trade Name Freq PRN Reason Stop Dose Admin Sodium Chloride 1,000 mls @ 30 mls/hr 08/24/24 05:45 08/24/24 06:18 Sodium Chloride 0.9% IV 08/25/24 05:44 30 mls/hr .Q24H MISHA Administration PFSH Anesthesia Medical History Obesity Diabetes Atherosclerosis Osteoarthritis GERD (gastroesophageal reflux disease) Adult onset hypothyroidism Anxiety Mixed hyperlipidemia Essential hypertension Surgical History Status post colonoscopy (05/24/20) polyps x 2 , internal hemorrhoids History of hernia repair Family History Mother Hypertension Other Cancer Diabetes Denies family history of Stroke Social History Smoking and tobacco/nicotine status: current every day tobacco/nicotine user Second hand smoke exposure: No Alcohol intake: never Substance/Drug Use: never Adopted: No Caregiver/support person: No Lives independently: Yes Household members: spouse Housing: House Marital status: Number of children: 0 service: No Current occupational status: disabled Current occupational exposures/hazards: No Do you think of yourself as: Straight/Heterosexual Current gender identity: Male Data Anesthesia Cardiac Studies: Echocardiogram 05/26/22 Echocardiogram Ultrasound 06/28/20 Sestamibi Stress Test (Cardiology) 07/09/20
--- NOTE | 2024-08-24 06:52 | W.PM.OPSUD ---
Surgery/Procedure H&P Update DATE OF PROCEDURE: August 24, 2024 DATE H&P PERFORMED: 07/29/24 H&P UPDATE INFORMATION: I have reviewed H&P completed within last 30 days, I have examined patient prior to procedure and No changes to prior documentation PREOP DIAGNOSIS: End-stage degenerative joint disease right knee PLANNED PROCEDURE: Operation Date: 08/24/24 07:00 Proposed Procedures p RIGHT Total Knee Arthroplasty(Right) - Blair Perez MD
[2024-08-24] MEDS: ceFAZolin 2,000 mg SDV 2000 MG IVP ×3 (06:59→23:25)
[2024-08-24] MEDS: tranexamic acid 1,000 mg/10mL SDV 1000 MG IV (07:22)
--- NOTE | 2024-08-24 08:47 | XR_ITS ---
WS: [id number] XR knee RT 1-2V [id number] REASON FOR EXAM: Total knee arthroplasty on the right FINDINGS: Total right knee arthroplasty. Components of the arthroplasty are intact and in proper position and alignment. No bone abnormality. XR/XR knee RT 1-2V [id number] IMPRESSION: Total right knee arthroplasty without abnormality as above.
--- NOTE | 2024-08-24 08:55 | P.OP_ITS ---
Operative Report Date of procedure: August 24, 2024 Surgeon: Blair Perez MD Procedure: Preoperative diagnosis: End-stage degenerative joint disease right knee Postoperative diagnosis: Same Procedure: Right total knee arthroplasty Surgeon: Blair Perez MD [employer] Machine Feeder: MORENA Menon's assistance was necessary for transfer the patient and placement on the table, assistance during the procedure, wound closure, dressing placement, and transfer the patient to the PACU Anesthesia: General EBL: 10 cc Tourniquet time: 50 minutes at 250 mmHg Indications: Eulalio is a 63-year-old white male who presented to the orthopedic clinic for bilateral knee pain. On x-ray he has degenerative change of both the right and left knee presenting in a windswept position with varus deformity right knee valgus deformity the left. 70 difficulty with this situation for quite some time now has failed all conservative measures. He is using assistive device for ambulation. Physical therapy has not helped him in the past. Ther efalexis at this time he is offered a total knee arthroplasty. He elects to have the right knee done first because this is most painful. All risk benefits treatment alternatives were discussed with him and is agreeable to proceed with surgical intervention at this time. Procedure: After obtaining the consent patient was taken to the operating room placed on the operative table supine position general anesthetic administered. Once good anesthesia was achieved pneumatic cuffs placed on proximal right leg and right leg was prepped and draped usual fashion. After surgical timeout as well as gravity elevation of the leg to exsanguinated pneumatic cuff inflated 250 mmHg. Foot was in a foot holding device the knee was positioned in 90 degree flexed position. Longitudinal incision made from superior pole the patella down to the tibial tubercle. Sharp dissection taken on down to subcutaneous tissues electrocautery used hemostasis. Soft tissue were stripped away from the anterior extensor mechanism. Extensor mechanism was then opened along the medial parapatellar incision line and along the medial side of the patella. Capsule of the tibia was stripped from the medial aspect of this i ncision to expose it as well as removing the anterior horn medial meniscus. ACL was sharply divided. The skin incision and extension of the of the incision was done through the extensor tendon proximally. Leg was put out the full extension and patella was everted 180 degrees. Excess soft tissue was removed with electrocautery around the periphery of the patella as well as some removing the patellar fat pad. Patella was sized to 46 patella reaming device. Patella was reamed to a 14 mm thickness at this point. Knee was flexed back to 90 degrees at this time patellas put in the lateral gutter. Appropriate retractors were placed to expose the anterior portion of the knee as well as a PCL retractor to expose the proximal tibia. Tibial cutting guide was positioned for a 2 mm cut off the most affected side that being medial. It was also aligned along the axis of the tibia. This is pinned in place. Small osteotome driven anterior to the PCL to protect it and then using a sagittal saw the tibial cut was made without any difficulties. Tibial cut was removed piecemeal after small osteotome was used to split it in half and cut a box cut around the insertion of the PCL. Once bony structures of the tibia were removed excess soft tissue were removed with electrocautery. This included menisci and the ACL. PCL retractor was removed distal hole was drilled in the distal femur just anterior to the intercondylar notch. Guide mireille was placed at the interventionally canal of the femur. Distal cutting block was positioned and pinned in place. Central side was used to make appropriate cuts. Distal femur sized to size 9 femoral cutting block. Drill holes were placed. Subsequently cutting block was then impacted on the distal femur anterior posterior and chamfer cuts were made without any difficulties. At this point PCL retractor was replaced and proximal tibia was sized to size F tray this is then aligned with an external guide mireille and pinned in place. Tray was then drilled for future pins for permanent procedure as well as central and emergent canal was drilled and then impacted with a punch. At this point trial femur was impacted on the distal femur and aligned appropriately. Tibial spacer was placed that being a size 10 without much difficulty. Knee was put the range of motion found to be stable in all positions with no varus valgus instability. Patient was able to flex fully and extend fully. Leg was put out full extension patella was readdressed again it was sized to size 38 patellar button appropriate drill holes were made through the guide and a trial patellar button was placed on the posterior aspect of the patella and knee was put range of motion to be stable. Trial components removed after drill holes made through the distal femoral trial. Knee was then washed copious amounts of pulse irrigation until clean of all bone fragments and soft tissue. Tibial tray was impacted that being a size F. Size 9 femoral component was then impacted on the distal femur. Subsequently a size 10 tibial spacer was placed and locked in place. Again the knee put the range of motion found to be stable and had full range of motion. Patella was then impacted onto the posterior patella. This too was then put to range of motion found to be stable. Scarred down tissue between this subcutaneous layer and the extensor mechanism was removed with electrocautery on the lateral side of the knee. Pneumatic cuff deflated at 50 minutes total tourniquet time. Extensor mechanism of the right. #1 Vicryl [id number] sutures with the knee on the small bump. Subcutaneous tissue reapproximated 0 Vicryl interrupted sutures and skin was closed with skin alondra. Wounds are clean and dry dressed with Xeroform gauze and adhesive occlusive dressing over the wound itself. Patient was then awakened transferred recovery in stable condition
[2024-08-24] MEDS: HYDROmorphone 1 mg/mL INJ 1ml 0.5 MG IVP (09:09)
--- NOTE | 2024-08-24 09:32 | ANES.PROC ---
Anesthesia Procedures Procedure/Date: 08/24/24 Nerve Block ^: Nerve Block 1: Main Anesthesia: general anesthesia Time Out Performed: Yes Consent: requested by attending/covering physician and from patient Nerve block location: other (IPACK ) Anesthesia monitors applied: pulse oximetry, EKG, BP cuff and oxygen Nerve block position: supine Anesthetic Used: other (ropivicaine 0.2%) Amount of anesthesia used (mL): 20 Ultrasound used to: recognize landmarks and visualize and ID brachial plexus Nerve Stimulator Used?: No Interscalene/Femoral BLK: other needle (pjunk 4inch) Injection: neg aspiration of heme Patient Tolerated Procedure: well Complications: none Nerve Block 2: Main Anesthesia: general anesthesia Time Out Performed: Yes Consent: requested by attending/covering physician and from patient Nerve block location: adductor canal Anesthesia monitors applied: pulse oximetry, EKG, BP cuff and oxygen Nerve block position: supine Anesthetic Used: ropivicaine 0.5% Amount of anesthesia used (mL): 20 Ultrasound used to: recognize landmarks Interscalene/Femoral BLK: other needle (pjunk 4inch) Injection: neg aspiration of heme Patient Tolerated Procedure: well Complications: none
[2024-08-24] MEDS: mupirocin oint 22 gm 1 APPLIC NASAL ×2 (10:21→17:59)
--- NOTE | 2024-08-24 10:30 | ANE.PACU2 ---
Inpatient post-anesthesia follow up: Airway intact: Yes Vital signs: Temperature 97.4 F Pulse Rate 97 Respiratory Rate 17 Blood Pressure 137/79 Pulse Oximetry 97 Oxygen Delivery Me thod Room Air Oxygen Flow Rate 5 Fraction of Inspir ed Oxygen Hydration adequate: Yes Nausea and vomiting: No Pain level: 1 Mental status: Baseline
[2024-08-24] MEDS: HYDROcodone-acetaminophen 5-325 mg Tablet 1 TAB PO ×2 (11:38→21:36)
[2024-08-24] MEDS: chlorhexidine gluconate 0.12% Btl 473 mL 30 ML MUCOUS MEM ×3 (12:39→21:37)
[2024-08-24] MEDS: sennosides-docusate Tablet 2 TAB PO (17:59)
[2024-08-25] MEDS: ondansetron 2 mg/ML SDV 2 mL 4 MG IVP (03:53)
[2024-08-25 04:36] VITALS: BP 135/98; PULSE 104; RESP 17; TEMP 36.6; O2SAT 96
[2024-08-25 04:41] LABS: Hematocrit 37.1 % (37-53); Hemoglobin 12.30 g/dL (11.27-16.99); Mean Corpuscular HGB Conc 33.2 g/dL (30-55); Mean Corpuscular Hemoglobin 31.9 pg (27-33); Mean Corpuscular Volume 96.4 fl (82-101); Nucleated Red Blood Cells % 0 %; Platelet Count 280 10^3/cmm (157-399); Red Blood Count 3.85 10^6/uL (3.85-5.65); White Blood Count 18.78 10^3/uL (3.29-11.43)
[2024-08-25 04:57] LABS: Anion Gap 19.0 (5-19); Blood Urea Nitrogen 16 mg/dL (8-23); Calcium 8.9 mg/dL (8.5-10.5); Carbon Dioxide 19 mmol/L (22-29); Chloride 104 mmol/L (98-107); Creatinine Clr Calc Pharmacy 110.1606; Glucose 160 mg/dL (65-115); Osmolality Calculated 291 mOsm/kg (285-295); Potassium 4.0 mmol/L (3.5-5.1); Sodium 138 mmol/L (136-145)
[2024-08-25] MEDS: ceFAZolin 2,000 mg SDV 2000 MG IVP (07:54)
[2024-08-25] MEDS: chlorhexidine gluconate 0.12% Btl 473 mL 30 ML MUCOUS MEM (09:35)
[2024-08-25] MEDS: mupirocin oint 22 gm 1 APPLIC NASAL (09:35)
[2024-08-25] MEDS: sennosides-docusate Tablet 2 TAB PO (09:36)
[2024-08-25] MEDS: ATORVASTATIN 10 MG TABLET PO (09:38)
[2024-08-25] MEDS: multivitamin therapeutic Tablet 1 TAB PO (09:39)
[2024-08-25 10:15] VITALS: BP 124/86; PULSE 112; RESP 16; TEMP 37.2; O2SAT 98
--- NOTE | 2024-08-25 12:59 | P.DS_ITS ---
Discharge Providers Date of Admission: 08/24/24 10:08 Date of Discharge: August 25, 2024 Attending Provider at Admission: Blair Perez MD Attending Provider at Discharge: Blair Perez MD Primary Care Provider: SILAS Martinez Diagnoses at Discharge Discharge Diagnosis (1) S/P total knee arthroplasty: Status: Acute Qualifiers: Laterality: right Qualified Code(s): Z96.651 - Presence of right artificial knee joint Permanent problem details: Date of procedure: August 24, 2024 Surgeon: Blair Perez MD Procedure: Right total knee arthroplasty. (2) Primary osteoarthritis of knees, bilateral: Status: Acute Reason for Visit Reason for Visit: M17.0 Brief History: Mr. Tsai is a 63-year-old white male who presented to the orthopedic clinic for bilateral knee pain. On x-ray he has degenerative change of both the right and left knee presenting in a windswept position with varus deformity right knee valgus deformity the left. 70 difficulty with this situation for quite some time now has failed all conservative measures. He is using assistive device for ambulation. Physical therapy has not helped him in the past. Therefore at this time he is offered a total knee arthroplasty. He elects to have the right knee done first because this is most painful. All risk benefits treatment alternatives were discussed with him and is agreeable to proceed with surgical intervention at this time. He underwent successful right total knee arthroplast y on Thursday, August 24, 2024. Admitted for observation status subsequently. Hospital Course Hospital Course Feliberto is postoperative day 1 after right total knee arthroplasty. He has been doing well and his postoperative pain has been well-controlled with oral medications. He has been working with therapy services while here in the hospital, and ambulating with a walker. He is doing well overall. He is able to straight leg raise. His postoperative dressings are clean and intact, with minimal postoperative drainage. After review and discussion, the patient is found to be stable for orthopedic discharge. Will plan to discharge with home nursing and therapy services, as insurance allows. He will follow-up in the clinic 2 weeks postoperatively. Physical Exam Const: COMMON NORMALS: no acute distress, average body habitus, patient oriented x3, no limitations, alert and well nourished GENERAL APPEARANCE: cooperative; not anxious and not combative ORIENTATION/CONSCIOUSNESS: Yes awake, Yes oriented to person, Yes oriented to place and Yes oriented to time HENMT: COMMON NORMALS: normocephalic and atraumatic HEAD & SCALP: normocephalic and atraumatic Resp: COMMON NORMALS: normal respiratory effort Cardio: OTHER: Denies shortness of breath, chest pain or pressure. Extremity: RIGHT LOWER EXTREMITY: Yes knee joint (Bulky postoperative dressings removed.) Right knee: Yes inspection (Postoperative dressing is clean, dry and intact. Minimal bloody drainage.), Yes palpation (Mild TTP anterior knee and distal quad.), Yes ROM (Able to slightly straight leg raise.) and Yes neurovascular exam (Sensation intact to light touch. Rapid cap refill.) and Yes lower leg Right lower leg: Yes special tests (Calf soft and nontender.) Right lower leg special tests: Destinee's sign: Negative Neuro: COMMON NORMALS: patient oriented x3 SENSORIUM/ORIENTATION: Yes alert, Yes oriented to person, Yes oriented to place and Yes oriented to time Psych: ATTITUDE: Yes engaged Skin: COMMON NORMALS: no rashes or lesions noted, turgor normal and no jaundice GENERAL SKIN EXAM: no rashes or lesions noted and turgor normal Urinary Catheter Management: Montanez: Cath Placed During This Visit: yes, but has since been removed by the nurse Reason for Continuing Indwelling Catheter: Decision to DC Catheter Urinary Catheter Date of Insertion: 08/24/24 Urinary Catheter Time of Insertion: 07:11 Date Urinary Catheter Removed: 08/25/24 Time Urinary Catheter Discontinued: 03:54 Discharge Data Studies Completed and Pending Completed Studies During Hospitalization Category Date Time Status XR knee RT 1-2V [id number] Stat Exams 08/24/24 08:47 Completed Pending at discharge Category Date Time Status Complete Blood Count w/Auto AM LABS Lab 08/26/24 04:00 Uncollected Complete Blood Count w/Auto AM LABS Lab 08/27/24 04:00 Uncollected Radiology Impressions Knee X-Ray 08/24/24 08:47 IMPRESSION: Total right knee arthroplasty without abnormality as above. Laboratory Results WBC 18.78 10^3/uL (3.29-11.43) H 08/25/24 04:34 RBC 3.85 10^6/uL (3.85-5.65) 08/25/24 04:34 Hgb 12.30 g/dL (11.27-16.99) 08/25/24 04:34 Hct 37.1 % (37-53) 08/25/24 04:34 MCV 96.4 fl (82-101) 08/25/24 04:34 MCH 31.9 pg (27-33) 08/25/24 04:34 MCHC 33.2 g/dL (30-55) 08/25/24 04:34 RDW 13.3 % (12.1-15.1) 08/25/24 04:34 Plt Count 280 10^3/cmm (157-399) 08/25/24 04:34 MPV 11.4 fL (7.4-10.4) H 08/25/24 04:34 Neut % (Auto) 78.3 % 08/25/24 04:34 Lymph % (Auto) 10.0 % 08/25/24 04:34 [place] % (Auto) 10.9 % 08/25/24 04:34 Eos % (Auto) 0.1 % 08/25/24 04:34 Baso % (Auto) 0.1 % 08/25/24 04:34 Neut # (Auto) 14.71 10^3/uL (1.8-7.7) H 08/25/24 04:34 Lymph # (Auto) 1.9 10^3/uL (0.8-4.8) 08/25/24 04:34 [place] # (Auto) 2.1 10^3/uL (0.2-0.9) H 08/25/24 04:34 Eos # (Auto) 0.0 10^3/uL (0.0-0.8) 08/25/24 04:34 Baso # (Auto) 0.0 10^3/uL (0.0-0.1) 08/25/24 04:34 Nucleated RBC % (auto) 0 % 08/25/24 04:34 Nucleated RBCs # 0.0 /100WBC 08/25/24 04:34 Sodium 138 mmol/L (136-145) 08/25/24 04:34 Potassium 4.0 mmol/L (3.5-5.1) 08/25/24 04:34 Chloride 104 mmol/L (98-107) 08/25/24 04:34 Carbon Dioxide 19 mmol/L (22-29) L 08/25/24 04:34 Anion Gap 19.0 (5-19) 08/25/24 04:34 BUN 16 mg/dL (8-23) 08/25/24 04:34 Creatinine 0.9 mg/dL (0.7-1.2) 08/25/24 04:34 GFR Calculation 85.5 mL/min (90-130) L 08/25/24 04:34 Glucose 160 mg/dL (65-115) H 08/25/24 04:34 POC Glucose 138 mg/dL (70-110) H 08/24/24 06:06 Calculated Osmolality 291 mOsm/kg (285-295) 08/25/24 04:34 Calcium 8.9 mg/dL (8.5-10.5) 08/25/24 04:34 Vitals Last Vital Signs Temp 97.9 F 08/25/24 04:36 Pulse 104 H 08/25/24 04:36 Resp 17 08/25/24 04:36 BP 135/98 08/25/24 04:36 Pulse Ox 96 08/25/24 04:36 O2 Del Method Room Air 08/25/24 04:36 O2 Flow Rate 5 08/24/24 09:30 Discharge Plan Discharge Patient Disposition: Home Health Service Condition: Stable Prescriptions: New acetaminophen 500 mg Tablet 1,000 mg PO Q8H 14 Days Qty: 84 0RF aspirin 325 mg Tablet,Delayed Release (Dr/Ec) 325 mg PO DAILY 30 Days Qty: 30 0RF hydrocodone-acetaminophen 5-325 mg tablet 1 tab PO Q6H PRN (Reason: pain) 5 Days Qty: 20 0RF Continued (DME) blood-glucose meter [Blood Glucose Monitoring] Kit See Rx Instructions .ROUTE .MEDSUPPLY Qty: 1 0RF Rx Instructions: As directed, once daily (DME) Blood Glucose Test Strip See Rx Instructions .ROUTE .MEDSUPPLY Qty: 100 11RF Rx Instructions: As directed, twice daily (DME) lancets [BD Ultra Fine Lancets] 33 gauge misc See Rx Instructions .ROUTE .MEDSUPPLY Qty: 100 0RF Rx Instructions: As directed, twice daily biotin 1,000 mcg tablet,chewable 1,000 mcg PO DAILY diphenhydramine HCl [Benadryl] 25 mg capsule 25 mg PO TID PRN (Reason: Sleep) acetaminophen 500 mg capsule 1,000 mg PO Q6H PRN (Reason: Pain) ibuprofen 800 mg tablet 800 mg PO BID PRN (Reason: pain) 30 Days Qty: 60 5RF omeprazole 20 mg capsule,delayed release(DR/EC) 20 mg PO DAILY 30 Days Qty: 30 5RF metformin 500 mg tablet 500 mg PO BID 30 Days Qty: 60 5RF lisinopril 40 mg tablet 40 mg PO DAILY 30 Days Qty: 30 5RF levothyroxine [Synthroid] 50 mcg tablet 50 mcg PO DAILY 30 Days Qty: 30 5RF atorvastatin [Lipitor] 10 mg tablet 10 mg PO DAILY 30 Days Qty: 30 5RF duloxetine 60 mg capsule,delayed release(DR/EC) 60 mg PO BID Qty: 60 5RF celecoxib [Celebrex] 200 mg capsule 200 mg PO BID Qty: 60 5RF Held aspirin 81 mg Tablet 81 mg PO DAILY Hold Instructions: Resume on 09/26/24. Discharge Orders: Discharge Order (Routine); Ordered 08/25/24 Ordered By: Carlie Browning Referrals: [facility] [Outside] [facility] [Outside] Referral Note: If you ever have any issues w/ transport to and from doctors visit this is a number you can call to see if insurance will assist w/ transport. Blair Perez MD [Physician, Orthopedics] - 09/09/24 9:15 am Discharge Activity: Increase activity as tolerated, Use walker/crutches as instructed and As per PT/OT instructions Patient Instructions: Acute Wound Care (DC), Precautions after Total Joint Replacement Surgery (DC), Opioid Safety (DC), OB Discharge Report, OB Food/Drug Interaction Guide, Opioid Safety, Post Anesthesia Care, Patient Portal & Jyoti Instructions Activity Restrictions/Additional Instructions: Weightbearing as tolerated with the assistance of walker for ambulation. Work with physical therapy services as discussed. Maintain dry postoperative dressing. Do not remove until your 2-week postoperative appointment. May shower with running water, with dressing in place. Avoid soaking incision site. Use pain medications postoperatively as discussed. May alternate with Tylenol. Full dose aspirin daily for blood clot prevention. Discharge Attestations Time Spent in Discharge Care*: greater than 30 min Quality Metrics Clinical Quality Measures [ No reported AMI, CVA or VTE this stay] Coding Level of Care Code Acute Code for Chg Fwd Diagnoses Status post total right knee replacement Z96.651 Laterality: right Primary osteoarthritis of knees, bilateral M17.0
[2024-08-25 14:55] VITALS: BP 117/75; PULSE 117; RESP 16; TEMP 37.1; O2SAT 98
== END 2024-08-25 15:20 | disposition home health service (06) ==
LOC: OBGYN 10:08
PROVIDERS: Admitting Provider Orthopaedic Surgery; PCP Nurse Practitioner Family; Visit Provider Orthopaedic Surgery
PROC: (CPT 27447; principal; 2024-08-24 07:00)
DX: M17.11 Unilateral primary osteoarthritis, right knee (principal); K21.9 Gastro-esophageal reflux disease without esophagitis; Z79.84 Long term (current) use of oral hypoglycemic drugs; Z79.82 Long term (current) use of aspirin; I10 Essential (primary) hypertension; E11.9 Type 2 diabetes mellitus without complications; F12.90 Cannabis use, unspecified, uncomplicated; E66.9 Obesity, unspecified; Z68.37 Body mass index [BMI] 37.0-37.9, adult; I70.90 Unspecified atherosclerosis; E03.9 Hypothyroidism, unspecified; F41.9 Anxiety disorder, unspecified; E78.2 Mixed hyperlipidemia; F17.200 Nicotine dependence, unspecified, uncomplicated
CPT/HCPCS: 27447; 36416; 51702; 73560; 80048; 82962; 85025; 97110; 97116; 97161; 97165; A4216; C1776; G0378; J0690; J1171; J1885; J2250; J2371; J2405; J2704; J3010; J7030; J7120; J9999

== ENCOUNTER 2024-08-28 15:02 | Emergency (ER) | payer MEDICARE, MEDICAID, SELFPAY ==
[2024-08-28 15:07] VITALS: BP 127/82; PULSE 121; RESP 18; TEMP 36.7; O2SAT 98; BMI 38.8
--- OUTSIDE RECORDS SUMMARY | 2024-08-28 15:10 | XMS_ITS | Clinical Summary ---
Author Organization [facility] Address [address] [place]: Epic Prelude ADT [place] [address] Care Team Providers [facility] Sales And Service Associate Name Role Phone Unavailable Primary Care Provider Unavailabl e Social History Tobacco Use Types Packs/Day Years Used Date Smoking Tobacco: Never Assessed Sex and Gender Information Value Date Recorded Sex Assigned at Not on file Legal Sex Male 3:34 PM CDT Gender Identity Not on file Sexual Orientation Not on file Plan of Treatment Health Maintenance Due Date Last Done Comments DTAP/TDAP/TD VACCINES (1 - Tdap) 1980 COLORECTAL SCREENING 2006 Colorectal Cancer Screening 2006 FIT-DNA Q 3 years 2006 FIT/FOBT Q 1 year 2006 Flex Sig/CT Colonography Q 5 years 2006 ZOSTER VACCINE (1 of 2) 09/08/2011 INFLUENZA VACCINE (#1) 2024 RSV VACCINE (60+ or ) (1 - 1-dose 75+ series) 2036
--- NOTE | 2024-08-28 15:54 | USR_ITS ---
PROCEDURE INFORMATION: Exam: US Duplex Right Lower Extremity Veins, Limited Exam date and time: 08/28/2024 4:13 PM Age: 63 years old Clinical indication: Pain; Leg, lower; Right; Prior surgery; Surgery date: 3-7 days post-operative; Surgery type: Tkr 08/24, R/O dvt TECHNIQUE: Imaging protocol: Real-time duplex ultrasound of the right extremity with 2-D goff scale, color Doppler flow and spectral waveform analysis including responses to compression and other maneuvers (when performed) with image documentation. Limited exam was focused on the right lower extremity veins. COMPARISON: MR knee RT wo con* [id number] 08/24/2023 7:50 AM FINDINGS: Right deep veins: Unremarkable. The common femoral, femoral, proximal profunda femoral and popliteal veins are patent without thrombus. Normal Doppler waveforms. Normal compressibility and/or augmentation response. Interrogated posterior and peroneal veins are patent. Superficial veins: Greater saphenous vein at the saphenofemoral junction is patent without thrombus. Soft tissues: Heterogeneous fluid collection of the popliteal fossa measuring 2.7 x 1.2 x 4.9 cm corresponds to Handy's cyst on comparison MRI. Reticulated soft tissue edema at the popliteal fossa. US/[place] [id number] IMPRESSION: 1. No evidence of deep vein thrombosis. 2. 4.9 cm long Handy's cyst.
--- NOTE | 2024-08-28 15:56 | W.ED.EXTPRO ---
HPI - Extremity Problem General: Chief complaint: Extremity Problem,Nontraumatic Stated complaint: surg site tenderness Time Seen by Provider: 08/28/24 15:43 Source: patient Mode of arrival: wheelchair Limitations: no limitations History of Present Illness: 63yo male with a history of diabetes, hypertension, hypothyroidism presents with family for evaluation of a swollen right leg following total knee replacement on 08/24/2024. Patient states that he has not been moving much since the surgery. Reports there are blisters on the leg that have liquid draining from them. He has been taking a 325 aspirin daily since the surgery. He denies fall, trauma, known injury, any other concerns at this time. Associated symptoms: Deny chest pain or fever(s) Related Data Home Medications ?Medication ?Instructions ?Recorded ?Confirmed aspirin 81 mg tablet 81 mg PO DAILY 05/24/20 08/23/24 Held on 08/25/24. Instructions: Resume on 09/26/24. acetaminophen 500 mg capsule 1,000 mg PO Q6H PRN Pain 06/18/22 08/23/24 diphenhydramine HCl 25 mg capsule 25 mg PO TID PRN Sleep 06/18/22 08/23/24 (Benadryl) biotin 1,000 mcg chewable tablet 1,000 mcg PO DAILY 05/31/24 08/23/24 Previous Rx's ?Medication ?Instructions ?Recorded blood sugar diagnostic (Blood #100 ea 04/25/20 Glucose Test strips) blood-glucose meter (Blood Glucose #1 ea 04/25/20 Monitoring kit) lancets 33 gauge (BD Ultra Fine #100 ea 04/25/20 Lancets) ibuprofen 800 mg tablet 800 mg PO BID PRN pain 30 days #60 04/29/23 tabs atorvastatin 10 mg tablet (Lipitor) 10 mg PO DAILY 30 days #30 tabs 05/03/24 celecoxib 200 mg capsule (Celebrex) 200 mg PO BID #60 caps 05/03/24 duloxetine 60 mg capsule,delayed 60 mg PO BID #60 caps 05/03/24 release levothyroxine 50 mcg tablet 50 mcg PO DAILY 30 days #30 tabs 05/03/24 (Synthroid) lisinopril 40 mg tablet 40 mg PO DAILY 30 days #30 tabs 05/03/24 metformin 500 mg tablet 500 mg PO BID 30 days #60 tabs 05/03/24 omeprazole 20 mg capsule,delayed 20 mg PO DAILY 30 days #30 caps 05/03/24 release acetaminophen 500 mg tablet 1,000 mg (2 x 500 mg) PO Q8H 14 08/25/24 days #84 tabs aspirin 325 mg tablet,delayed 325 mg PO DAILY 30 days #30 tabs 08/25/24 release hydrocodone 5 mg-acetaminophen 325 1 tab PO Q6H PRN pain 5 days #20 08/25/24 mg tablet tabs Allergies Allergy/AdvReac Type Severity Reaction Status Date / Time No Known Allergies Allergy Verified 08/24/24 06:01 Review of Systems Const: Denies: fever(s), chills or body aches Card: Denies: chest pain Resp: Denies: dyspnea Musc: Reports: extremity swelling (right) PFS ED PFSH: Medical History (Updated 08/28/24 @ 18:22 by MORENA Jara) Obesity Diabetes Atherosclerosis Osteoarthritis GERD (gastroesophageal reflux disease) Adult onset hypothyroidism Anxiety Mixed hyperlipidemia Essential hypertension Surgical History (Updated 08/28/24 @ 18:22 by MORENA Jara) S/P total knee arthroplasty Date of procedure: August 24, 2024 Surgeon: Blair Perez MD Procedure: Right total knee arthroplasty. Status post colonoscopy (05/24/20) polyps x 2 , internal hemorrhoids History of hernia repair Family History Mother Hypertension Other Cancer Diabetes Denies family history of Stroke Social History Smoking and tobacco/nicotine status: current every day tobacco/nicotine user Second hand smoke exposure: No Alcohol intake: never Substance/Drug Use: never Adopted: No Caregiver/support person: No Lives independently: Yes Household members: spouse Housing: House Marital status: Number of children: 0 service: No Current occupational status: disabled Current occupational exposures/hazards: No Do you think of yourself as: Straight/Heterosexual Current gender identity: Male Physical Exam Const: COMMON NORMALS: no acute distress, patient oriented x3, healthy appearing and alert GENERAL APPEARANCE: cooperative ORIENTATION/CONSCIOUSNESS: Yes awake OTHER: Patient is sitting upright on the stretcher no acute distress. He is able to give history with assistance from family. He is interactive with exam appropriately. Family is at bedside HENMT: COMMON NORMALS: normocephalic and atraumatic HEAD & SCALP: normocephalic and atraumatic Neck/C-Spine: COMMON NORMALS: full ROM Chest: CHEST: Yes Symmetrical chest wall rise Resp: COMMON NORMALS: normal respiratory effort and clear to auscultation bilaterally EFFORT & INSPECTION: Yes able to speak in complete sentences AUSCULTATION: clear to auscultation bilaterally Cardio: COMMON NORMALS: regular rhythm RATE: tachycardic RHYTHM: regular rhythm Extremity: RIGHT LOWER EXTREMITY: Yes knee joint (alondra intact. No drainage from the incision.) OTHER: Mild generalized swelling of the right lower leg.+ Movement right toes. Pedal pulse 2+, capillary refill less than 3 seconds EXTREMITY IMAGE (FRONT):  1. alondra intact 2. mild erythema 3. ecchymosis Neuro: COMMON NORMALS: patient oriented x3 SENSORIUM/ORIENTATION: Yes alert Course Vital Signs: Vital signs: Vital Signs Temperature 98.0 F 08/28/24 15:07 Pulse Rate 121 H 08/28/24 15:07 Respiratory Rate 18 08/28/24 15:07 Blood Pressure 127/82 08/28/24 15:07 Pulse Oximetry 98 08/28/24 15:07 Oxygen Delivery Me thod Room Air 08/28/24 15:07 MDM - Extremity (Nontraumatic) Medical Decision Making 63yo male with a history of diabetes, hypertension, hypothyroidism presents with family for evaluation of a swollen right leg following total knee replacement on 08/24/2024. Patient states that he has not been moving much since the surgery. Reports there are blisters on the leg that have liquid draining from them. He has been taking a 325 aspirin daily since the surgery. He denies fall, trauma, known injury, any other concerns at this time. Patient is nontoxic in appearance. Tachycardia noted on triage vitals with a heart rate of 121. Patient did not take any of his medications today, no rate controllers were noted on his medication list. Given recent surgery, we will evaluate for possible DVT as well as possible infection. No DVT noted on ultrasound, 4.9 cm long Handy's cyst noted. Leukocytosis noted with a white blood cell count of 18.6, which is actually decreased from patient's previous on 08/25/2024 of 18.78. No indication of anemia. No significant electrolyte, renal, or hepatic abnormalities noted. Discussed findings with patient. Discussed that the Handy's cyst can cause swelling of the leg. Also discussed that the blisters are likely from the dressing. Encourage patient to continue to monitor his symptoms closely. Recommend he call his orthopedist in the next 1 to 2 days with an update of symptoms and to discuss a recheck. Return precautions provided. Patient states understanding and has no further questions or concerns at this time. Medical Records I reviewed the patient's medical records. Lab Data I reviewed the patient's lab results. 08/28/24 16:09 08/28/24 16:09 Radiology Impressions Venous Duplex 08/28/24 15:54 IMPRESSION: 1. No evidence of deep vein thrombosis. 2. 4.9 cm long Handy's cyst. Laboratory Results WBC 18.60 10^3/uL (3.29-11.43) H 08/28/24 16:09 RBC 3.69 10^6/uL (3.85-5.65) L 08/28/24 16:09 Hgb 11.60 g/dL (11.27-16.99) 08/28/24 16:09 Hct 35.7 % (37-53) L 08/28/24 16:09 MCV 96.7 fl (82-101) 08/28/24 16:09 MCH 31.4 pg (27-33) 08/28/24 16:09 MCHC 32.5 g/dL (30-55) 08/28/24 16:09 RDW 13.0 % (12.1-15.1) 08/28/24 16:09 Plt Count 352 10^3/cmm (157-399) 08/28/24 16:09 MPV 11.8 fL (7.4-10.4) H 08/28/24 16:09 Neut % (Auto) 80.1 % 08/28/24 16:09 Lymph % (Auto) 9.9 % 08/28/24 16:09 [place] % (Auto) 8.4 % 08/28/24 16:09 Eos % (Auto) 0.9 % 08/28/24 16:09 Baso % (Auto) 0.2 % 08/28/24 16:09 Neut # (Auto) 14.90 10^3/uL (1.8-7.7) H 08/28/24 16:09 Lymph # (Auto) 1.8 10^3/uL (0.8-4.8) 08/28/24 16:09 [place] # (Auto) 1.6 10^3/uL (0.2-0.9) H 08/28/24 16:09 Eos # (Auto) 0.2 10^3/uL (0.0-0.8) 08/28/24 16:09 Baso # (Auto) 0.0 10^3/uL (0.0-0.1) 08/28/24 16:09 Nucleated RBC % (auto) 0 % 08/28/24 16:09 Nucleated RBCs # 0.0 /100WBC 08/28/24 16:09 Sodium 136 mmol/L (136-145) 08/28/24 16:09 Potassium 3.3 mmol/L (3.5-5.1) L 08/28/24 16:09 Chloride 99 mmol/L (98-107) 08/28/24 16:09 Carbon Dioxide 21 mmol/L (22-29) L 08/28/24 16:09 Anion Gap 19.3 (5-19) H 08/28/24 16:09 BUN 16 mg/dL (8-23) 08/28/24 16:09 Creatinine 0.8 mg/dL (0.7-1.2) 08/28/24 16:09 GFR Calculation 98.0 mL/min (90-130) 08/28/24 16:09 Glucose 175 mg/dL (65-115) H 08/28/24 16:09 Calculated Osmolality 287 mOsm/kg (285-295) 08/28/24 16:09 Lactic Acid 2.0 mmol/L (0.5-2.2) 08/28/24 16:09 Calcium 9.5 mg/dL (8.5-10.5) 08/28/24 16:09 Total Bilirubin 0.6 mg/dL (0.15-1.2) 08/28/24 16:09 AST 21 U/L (0-40) 08/28/24 16:09 ALT 19 U/L (0-41) 08/28/24 16:09 Alkaline Phosphatase 103 U/L (40-130) 08/28/24 16:09 Total Protein 7.3 g/dL (6.6-8.7) 08/28/24 16:09 Albumin 3.3 g/dL (3.5-5.2) L 08/28/24 16:09 Globulin 4.0 g/dL (1.3-4.6) 08/28/24 16:09 All radiology interpretation(s) finalized by discharge Discharge Plan Discharge Patient Disposition: Home Clinical Impression: Synovial cyst of popliteal space [Handy], right knee, Blister (nonthermal), right lower leg, initial encounter, Status post total knee replacement, right Condition: Stable Prescriptions: No Action (DME) blood-glucose meter [Blood Glucose Monitoring] Kit See Rx Instructions .ROUTE .MEDSUPPLY Qty: 1 0RF Rx Instructions: As directed, once daily (DME) Blood Glucose Test Strip See Rx Instructions .ROUTE .MEDSUPPLY Qty: 100 11RF Rx Instructions: As directed, twice daily (DME) lancets [BD Ultra Fine Lancets] 33 gauge misc See Rx Instructions .ROUTE .MEDSUPPLY Qty: 100 0RF Rx Instructions: As directed, twice daily biotin 1,000 mcg tablet,chewable 1,000 mcg PO DAILY diphenhydramine HCl [Benadryl] 25 mg capsule 25 mg PO TID PRN (Reason: Sleep) acetaminophen 500 mg capsule 1,000 mg PO Q6H PRN (Reason: Pain) ibuprofen 800 mg tablet 800 mg PO BID PRN (Reason: pain) 30 Days Qty: 60 5RF omeprazole 20 mg capsule,delayed release(DR/EC) 20 mg PO DAILY 30 Days Qty: 30 5RF metformin 500 mg tablet 500 mg PO BID 30 Days Qty: 60 5RF lisinopril 40 mg tablet 40 mg PO DAILY 30 Days Qty: 30 5RF levothyroxine [Synthroid] 50 mcg tablet 50 mcg PO DAILY 30 Days Qty: 30 5RF atorvastatin [Lipitor] 10 mg tablet 10 mg PO DAILY 30 Days Qty: 30 5RF duloxetine 60 mg capsule,delayed release(DR/EC) 60 mg PO BID Qty: 60 5RF celecoxib [Celebrex] 200 mg capsule 200 mg PO BID Qty: 60 5RF aspirin 81 mg Tablet 81 mg PO DAILY acetaminophen 500 mg Tablet 1,000 mg PO Q8H 14 Days Qty: 84 0RF aspirin 325 mg Tablet,Delayed Release (Dr/Ec) 325 mg PO DAILY 30 Days Qty: 30 0RF hydrocodone-acetaminophen 5-325 mg tablet 1 tab PO Q6H PRN (Reason: pain) 5 Days Qty: 20 0RF Discharge Orders: Discharge ED (Routine); Ordered 08/28/24 Ordered By: Lisandro Farfan Referrals: Chhaya Kraft FNP-C [Primary Care Provider, Family Practice] Patient Instructions: Opioid Safety, Pain Management, Patient Portal & Jyoti Instructions Activity Restrictions/Additional Instructions: No indication of a blood clot noted on the ultrasound today. They did find a 4.9 cm Handy's cyst, which can be contributing to the swelling in the leg The blisters are likely a skin reaction from the dressing on your leg. We did change the type of dressing today Continue with your previously prescribed medications Follow-up with orthopedics, call tomorrow with an update of symptoms and to discuss possible recheck Return to the emergency department if any rapid worsening symptoms, difficulty breathing, shortness of breath, chest pain, and as needed Print Language: Canadian Coding Level of Care Code ED Emergency Worker for Chris Dominguez
[2024-08-28 16:19] LABS: Hematocrit 35.7 % (37-53); Hemoglobin 11.60 g/dL (11.27-16.99); Mean Corpuscular HGB Conc 32.5 g/dL (30-55); Mean Corpuscular Hemoglobin 31.4 pg (27-33); Mean Corpuscular Volume 96.7 fl (82-101); Nucleated Red Blood Cells % 0 %; Platelet Count 352 10^3/cmm (157-399); Red Blood Count 3.69 10^6/uL (3.85-5.65); White Blood Count 18.60 10^3/uL (3.29-11.43)
[2024-08-28 16:35] LABS: Lactic Sepsis W/Reflex 2.0 mmol/L (0.5-2.2)
[2024-08-28 16:40] LABS: Alanine Aminotransferase 19 U/L (0-41); Albumin Level 3.3 g/dL (3.5-5.2); Alkaline Phosphatase 103 U/L (40-130); Anion Gap 19.3 (5-19); Aspartate Amino Transferase 21 U/L (0-40); Blood Urea Nitrogen 16 mg/dL (8-23); Calcium 9.5 mg/dL (8.5-10.5); Carbon Dioxide 21 mmol/L (22-29); Chloride 99 mmol/L (98-107); Creatinine Clr Calc Pharmacy 122.0619; Globulin 4.0 g/dL (1.3-4.6); Glucose 175 mg/dL (65-115); Osmolality Calculated 287 mOsm/kg (285-295); Potassium 3.3 mmol/L (3.5-5.1); Sodium 136 mmol/L (136-145); Total Protein 7.3 g/dL (6.6-8.7)
[2024-08-28] MEDS: HYDROcodone-acetaminophen 5-325 mg Tablet 1 TAB PO (16:52)
== END 2024-08-28 18:43 | disposition home or self-care (01) ==
PROVIDERS: Emergency Medicine; Emergency Provider Nurse Practitioner; PCP Nurse Practitioner Family
DX: M71.21 Synovial cyst of popliteal space [Baker], right knee (principal); S80.821A Blister (nonthermal), right lower leg, initial encounter; Z96.651 Presence of right artificial knee joint; Z79.84 Long term (current) use of oral hypoglycemic drugs; Z79.82 Long term (current) use of aspirin; Z72.0 Tobacco use; E11.9 Type 2 diabetes mellitus without complications; I10 Essential (primary) hypertension; E78.2 Mixed hyperlipidemia; X58.XXXA Exposure to other specified factors, initial encounter
CPT/HCPCS: 36415; 80053; 83605; 85025; 87040; 93971; 99284; J7030; J9999

== ENCOUNTER → 2024-08-30 15:42 | Outpatient (BNVA) | payer MEDICARE, MEDICAID, SELFPAY | PROVIDERS: PCP Nurse Practitioner Family; Visit Provider Orthopaedic Surgery | DX: M71.21 Synovial cyst of popliteal space [Baker], right knee (principal); Z98.890 Other specified postprocedural states | CPT/HCPCS: 99024 ==

== ENCOUNTER → 2024-09-09 09:18 | Outpatient (BNVA) | payer MEDICARE, MEDICAID, SELFPAY | PROVIDERS: PCP Nurse Practitioner Family; Visit Provider Orthopaedic Surgery | DX: Z96.651 Presence of right artificial knee joint (principal); Z01.89 Encounter for other specified special examinations | CPT/HCPCS: 73560; 73565; 99024 ==

== ENCOUNTER 2024-09-23 05:00 | Outpatient (RCR) | payer MEDICARE, MEDICAID, SELFPAY | END 2024-10-23 23:59 | disposition home or self-care (01) | LOC: APT 05:00 | PROVIDERS: Visit Provider Orthopaedic Surgery | DX: Z47.1 Aftercare following joint replacement surgery (principal); Z96.651 Presence of right artificial knee joint | CPT/HCPCS: 97110; 97112; 97530 ==

== ENCOUNTER 2024-10-24 05:00 | Outpatient (RCR) | payer MEDICARE, MEDICAID, SELFPAY | END 2024-11-22 23:59 | disposition home or self-care (01) | LOC: APT 05:00 | PROVIDERS: Visit Provider Orthopaedic Surgery | DX: Z47.1 Aftercare following joint replacement surgery (principal); Z96.651 Presence of right artificial knee joint | CPT/HCPCS: 97110; 97112; 97530 ==

== ENCOUNTER → 2024-11-10 09:15 | Outpatient (BNVA) | payer MEDICARE, MEDICAID, SELFPAY | PROVIDERS: PCP Nurse Practitioner Family; Visit Provider Orthopaedic Surgery | DX: Z96.651 Presence of right artificial knee joint (principal); Z98.890 Other specified postprocedural states | CPT/HCPCS: 99024 ==

== ENCOUNTER → 2024-12-06 10:16 | Outpatient (BNVA) | payer MEDICARE, MEDICAID, SELFPAY | PROVIDERS: PCP Nurse Practitioner Family; Visit Provider Nurse Practitioner Family | DX: E11.9 Type 2 diabetes mellitus without complications (principal) | CPT/HCPCS: 80053; 80061; 83036; 84443; 85025 ==

== ENCOUNTER → 2024-12-13 10:02 | Outpatient (BNVA) | payer MEDICARE, MEDICAID, SELFPAY | PROVIDERS: PCP Nurse Practitioner Family; Visit Provider Orthopaedic Surgery | DX: M16.11 Unilateral primary osteoarthritis, right hip (principal) | CPT/HCPCS: 73502; 99214 ==

== ENCOUNTER 2024-12-14 12:49 | Outpatient (RCR) | payer MEDICARE, MEDICAID, SELFPAY | END 2024-12-14 15:04 | disposition home or self-care (01) | LOC: APT 12:49 | PROVIDERS: PCP Nurse Practitioner Family; Visit Provider Orthopaedic Surgery | DX: Z47.1 Aftercare following joint replacement surgery (principal); Z96.651 Presence of right artificial knee joint | CPT/HCPCS: 97110; 97530 ==

== ENCOUNTER → 2025-02-07 14:54 | Outpatient (BNVA) | payer MEDICARE, MEDICAID, SELFPAY | PROVIDERS: PCP Nurse Practitioner Family; Visit Provider Family Medicine | DX: Z01.818 Encounter for other preprocedural examination (principal); M16.11 Unilateral primary osteoarthritis, right hip; M25.751 Osteophyte, right hip; M85.651 Other cyst of bone, right thigh; M85.851 Other specified disorders of bone density and structure, right thigh; Z79.82 Long term (current) use of aspirin; M17.0 Bilateral primary osteoarthritis of knee; Z79.84 Long term (current) use of oral hypoglycemic drugs; E11.9 Type 2 diabetes mellitus without complications; I10 Essential (primary) hypertension; F17.200 Nicotine dependence, unspecified, uncomplicated; M85.68 Other cyst of bone, other site | CPT/HCPCS: 80053; 81000; 85025 ==

== ENCOUNTER 2025-02-08 11:47 | Observation (INO) | payer MEDICARE, MEDICAID, SELFPAY ==
[2025-02-08] VITALS (17 sets, daily range): BP systolic 82–145; BP diastolic 60–99; PULSE 90–109; RESP 14–18; TEMP 36.1–37; O2SAT 95–100; BMI 36.7
--- NOTE | 2025-02-08 08:24 | ANES.PREANE2 ---
Pre-Anesthetic Assessment Height/Weight: Height 5 ft 9 in Weight 249 lb Temp Pulse Resp BP Pulse Ox O2 Del Method 98.6 F 93 17 145/99 98 Room Air 02/08/25 07:54 02/08/25 07:54 02/08/25 07:54 02/08/25 07:54 02/08/25 07:54 02/08/25 07:55 Preop Diagnosis: Hip arthritis Operation Date: 02/08/25 09:25 Proposed Procedures p Total Hip Arthroplasty(Right) - Blair Perez MD Was Beta Ramesh taken within 24 hours: N/A Was Clonidine taken within 24 hours: N/A Last intake: Intake Last Liquid Date 02/07/25 Last Liquid Time 23:59 Last Solid Date 02/07/25 Last Solid Time 17:00 Social No alcohol and No tobacco Smokes marijuana Exam alert, oriented x 3, clear to auscultation bilaterally and regular rate & rhythm Airway Submandibular: within normal limits Cervical ROM: within normal limits Mallampati: Class III Comments: Comments: Can only see the roots of a few teeth, almost all teeth missing Anesthetic Plan ASA status: 3 Anesthesia: General Other: No prior issues with anesthesia NPO since yesterday evening Previous TKA under GA and did well History of hypertension on lisinopril Type 2 diabetes, preop BS 109 Hypothyroidism on Synthroid GERD on omeprazole Normal EKG Labs reviewed from November and acceptable for procedure. Labs pending from today Plan for general anesthesia Medications/Allergies Home Medications ?Medication ?Instructions ?Recorded ?Confirmed ?Last Taken ?Type blood sugar diagnostic (Blood #100 ea 04/25/20 01/31/25 Unknown Rx Glucose Test strips) blood-glucose meter (Blood Glucose #1 ea 04/25/20 01/31/25 Unknown Rx Monitoring kit) lancets 33 gauge (BD Ultra Fine #100 ea 04/25/20 01/31/25 Unknown Rx Lancets) aspirin 81 mg tablet 81 mg PO DAILY 05/24/20 02/07/25 02/06/25 History Held on 08/25/24. Instructions: Resume on 09/26/24. acetaminophen 500 mg capsule 1,000 mg PO Q6H PRN Pain 06/18/22 02/07/25 Unknown History diphenhydramine HCl 25 mg capsule 25 mg PO TID PRN Sleep 06/18/22 02/07/25 08/22/24 History (Benadryl) ibuprofen 800 mg tablet 800 mg PO BID PRN pain 30 days #60 04/29/23 02/07/25 08/21/24 Rx tabs atorvastatin 10 mg tablet (Lipitor) 10 mg PO DAILY 30 days #30 tabs 12/06/24 02/07/25 02/07/25 Rx duloxetine 60 mg capsule,delayed 60 mg PO BID #60 caps 12/06/24 02/07/25 02/07/25 Rx release levothyroxine 50 mcg tablet 50 mcg PO DAILY 30 days #30 tabs 12/06/24 02/07/25 02/07/25 Rx (Synthroid) lisinopril 40 mg tablet 40 mg PO DAILY 30 days #30 tabs 12/06/24 02/07/25 02/07/25 Rx metformin 500 mg tablet 500 mg PO BID 30 days #60 tabs 12/06/24 02/07/25 02/07/25 Rx omeprazole 20 mg capsule,delayed 20 mg PO DAILY 30 days #30 caps 12/06/24 02/07/25 02/07/25 Rx release celecoxib 200 mg capsule 200 mg PO BID 02/07/25 02/07/25 02/06/25 History Allergies Allergy/AdvReac Type Severity Reaction Status Date / Time adhesive tape Allergy Severe blisters Verified 12/06/24 08:57 Current Medications Generic Name Dose Route Start Last Admin Trade Name Freq PRN Reason Stop Dose Admin Sodium Chloride 1,000 mls @ 30 mls/hr 02/08/25 07:45 02/08/25 08:04 Sodium Chloride 0.9% IV 02/09/25 07:44 30 mls/hr .Q24H MISHA Administration PFSH Anesthesia Medical History Obesity Diabetes Atherosclerosis Osteoarthritis GERD (gastroesophageal reflux disease) Adult onset hypothyroidism Anxiety Mixed hyperlipidemia Essential hypertension Surgical History S/P total knee arthroplasty Date of procedure: August 24, 2024 Surgeon: Blari Perez MD Procedure: Right total knee arthroplasty. Status post colonoscopy (05/24/20) polyps x 2 , internal hemorrhoids History of hernia repair Family History Mother Hypertension Other Cancer Diabetes Denies family history of Stroke Social History Smoking and tobacco/nicotine status: current every day tobacco/nicotine user Second hand smoke exposure: No Alcohol intake: never Substance/Drug Use: never Adopted: No Caregiver/support person: No Lives independently: Yes Household members: spouse Housing: House Marital status: Number of children: 0 service: No Current occupational status: disabled Current occupational exposures/hazards: No Do you think of yourself as: Straight/Heterosexual Current gender identity: Male Data Anesthesia Cardiac Studies: Echocardiogram 05/26/22 Echocardiogram Ultrasound 06/28/20 Sestamibi Stress Test (Cardiology) 07/09/20
--- NOTE | 2025-02-08 08:44 | W.PM.OPSUD ---
Surgery/Procedure H&P Update DATE OF PROCEDURE: February 08, 2025 DATE H&P PERFORMED: 01/31/25 H&P UPDATE INFORMATION: I have reviewed H&P completed within last 30 days, I have examined patient prior to procedure and No changes to prior documentation PLANNED PROCEDURE: Operation Date: 02/08/25 09:25 Proposed Procedures p Total Hip Arthroplasty(Right) - Blair Perez MD
[2025-02-08] MEDS: ceFAZolin 2,000 mg SDV 2000 MG IVP ×2 (10:25→17:08)
[2025-02-08] MEDS: tranexamic acid 1,000 mg/10mL SDV 1000 MG IV (10:25)
[2025-02-08] MEDS: ROPivacaine 0.5% SDV 30 mL 150 MG (10:38)
[2025-02-08] MEDS: ceFAZolin 1,000 mg SDV 1000 MG IRRIGATION (10:38)
[2025-02-08] MEDS: BUPivacaine liposome 13.3 mg/mL SDV 20 mL 266 MG INFILTRATI (10:39)
--- NOTE | 2025-02-08 11:26 | XR_ITS ---
WS: [id number] Pelvis, AP view, 02/08/2025 Clinical Data: Right total hip arthroplasty Comparison: Pelvis and right hip, 12/13/2024 Findings: There is a right hip arthroplasty. The components are in good position. The left hip is normal. The soft tissues are unremarkable. XR/XR pelvis 1-2V* [id number] Impression: Right hip arthroplasty.
--- NOTE | 2025-02-08 11:32 | P.OP_ITS ---
Operative Report Date of procedure: February 08, 2025 Surgeon: Blair Perez MD Procedure: Preoperative diagnosis: End-stage degenerative joint disease right hip Postoperative diagnosis: Same Procedure: Right total hip arthroplasty Surgeon: Blair Perez MD Strategic Debriefing Officer: MORENA Menon was necessary for positioning the patient, assistance during procedure, wound closure and dressing Placement Anesthesia: General EBL: 200 cc Indications: Feliberto is a well-known patient myself recently had a right total knee arthroplasty. After overcoming his knee pain and is rehabbing for this he began having debilitating right hip pain. Subsequent x-rays demonstrate [id number] presentation with subchondral cysts and subchondral sclerosis of the joint line of the right hip. Therefore at this time patient was offered a right total hip arthroplasty. All risk benefits treatment alternatives were discussed with him and he was agreeable to this at this time. Procedure: After obtaining written consent he was taken to the operative room placed op table supine position general anesthetic administered. Once K[place]ky was achieved patient placed up in the lateral decubitus position with right hip up. He was held in place with the pegboard that was well-padded. Right hip and leg were prepped and draped usual fashion. After surgical timeout the hip was flexed 90 degrees and a posterior lateral approach to the right hip was made with #10 blade. Sharp dissecting on down to subcutaneous tissue electrocautery used hemostasis. Dissection was taken on down to the posterior aspect of the greater trochanter. Leg was internally rotated and dissection was taken along the posterior aspect the greater trochanter down the femoral neck. Soft tissue raised from the bony structures. Capsule was opened up in a T-type fashion. Leg was internally rotated the hip was Dislocated. Appropriate self-retaining retractors were placed exposing the area. At this pointCutting template for the femur was administered to the proximal femur and femoral neck was marked at the cut spot. Sagittal saw was then used to make the femoral cut removing the femoral head neck.Deep Hohmann was then placed on the anterior inferior corner of the acetabulum to hold the femur out of position. Long handled 10 blade was then used to remove the labrum of the hip. Starting with a size 51 reamer acetabulum was reamed by 1 mm increments from [address] up to 55. Good bleeding bone was obtained circumferentially. Trial 56 cup was placed and found to had good fixation. Subsequently a permanent size 56 cup was placed with appropriate anteversion and vertical tilt and impacted in the acetabular without any difficulties. 10 degree high wall liner was then positioned in there and locked in place also. Deep retractor was removed. Proximal femoral retractor was placed. Box cut osteotome was used to make entry point into the proximal femur. Hand reaming and then lateralized power reaming was done to the proximal femur. Subsequently using broaches starting at a 0 and going up by 1 mm increments these were impacted into the femoral canal and appropriate anteversion. Broaching went up to a size 4 before adequate fit and fill was found. At this point hip was washed close amounts of pulse Avage irrigation with antibiotics within it. A size 4 permanent femoral stem was placed within appropriate anteversion. This is impacted without any difficulty. Trial head and necks were then trialed starting with a standard neck and 36 mm head. This is reduced had good motion however was then unstable. He is also short. Subsequently trials were taken on up to a neck length of 7.5 before adequate stability range of motion and leg length were obtained. Therefore at this time temporary head and neck were removed everything was washed with pulse Avage irrigation with antibiotics again. Permanent 36 mm ceramic head with a 7.5+ neck was applied to the Burnham taper. This is impacted and locked in place. Hip was reduced with range of motion found to be stable. Knee was put up on a knee bump and leg was slightly internally rotated. Capsule was repaired with #1 Vicryl [id number] sutures. Piriformis repaired back to the greater trochanter with #5 Ethibond sutures through drill holes. Areas washed again with sterile irrigation. Exparel rel was injected into the surgical wounds at this point. Deep fascia was reapproximated 0 Vicryl [id number] suture subcutaneous tissue reapproximated with 0 Vicryl erupted sutures skin was closed skin alondra. Wounds are clean and dry dressed with a type II dressing sterile gauze dressing and Silverlon adherent dressing. Patient placed abduction pillow on and transferred to recovery room.
[2025-02-08] MEDS: ondansetron 2 mg/ML SDV 2 mL 4 MG IVP (11:52)
--- NOTE | 2025-02-08 12:22 | ANE.PACU2 ---
Inpatient post-anesthesia follow up: Airway intact: Yes Vital signs: Temperature 97.9 F Pulse Rate 95 Respiratory Rate 18 Blood Pressure 102/67 Pulse Oximetry 98 Oxygen Delivery Me thod Room Air Oxygen Flow Rate Fraction of Inspir ed Oxygen Hydration adequate: Yes Nausea and vomiting: No Pain level: 1 Mental status: Baseline
[2025-02-08] MEDS: HYDROcodone-acetaminophen 5-325 mg Tablet 1 TAB PO ×3 (13:08→23:03)
[2025-02-08] MEDS: mupirocin oint 22 gm 1 APPLIC NASAL (17:08)
[2025-02-08] MEDS: sennosides-docusate Tablet 2 TAB PO (17:09)
[2025-02-08] MEDS: chlorhexidine gluconate 0.12% Btl 473 mL 30 ML MUCOUS MEM ×2 (17:11→22:58)
[2025-02-08] MEDS: MELATONIN 3 MG TABLET PO (20:54)
[2025-02-09] VITALS: BP 114/77; PULSE 96; RESP 18; TEMP 36.4; O2SAT 92
[2025-02-09] MEDS: ceFAZolin 2,000 mg SDV 2000 MG IVP ×2 (01:32→11:27)
[2025-02-09 01:53] LABS: Hematocrit 35.7 % (37-53); Hemoglobin 11.50 g/dL (11.27-16.99); Mean Corpuscular HGB Conc 32.2 g/dL (30-55); Mean Corpuscular Hemoglobin 30.6 pg (27-33); Mean Corpuscular Volume 94.9 fl (82-101); Nucleated Red Blood Cells % 0 %; Platelet Count 233 10^3/cmm (157-399); Red Blood Count 3.76 10^6/uL (3.85-5.65); White Blood Count 15.79 10^3/uL (3.29-11.43)
[2025-02-09 02:20] LABS: Anion Gap 14.2 (5-19); Blood Urea Nitrogen 17 mg/dL (8-23); Calcium 8.8 mg/dL (8.5-10.5); Carbon Dioxide 24 mmol/L (22-29); Chloride 104 mmol/L (98-107); Glucose 109 mg/dL (65-115); Osmolality Calculated 288 mOsm/kg (285-295); Potassium 4.2 mmol/L (3.5-5.1); Sodium 138 mmol/L (136-145)
[2025-02-09 04:00] VITALS: BP 145/85; PULSE 88; RESP 18; TEMP 36.9; O2SAT 97
[2025-02-09] MEDS: HYDROcodone-acetaminophen 5-325 mg Tablet 1 TAB PO (04:25)
[2025-02-09] MEDS: multivitamin therapeutic Tablet 1 TAB PO (04:26)
[2025-02-09] MEDS: sennosides-docusate Tablet 2 TAB PO ×2 (04:26→17:49)
[2025-02-09] MEDS: mupirocin oint 22 gm 1 APPLIC NASAL ×2 (04:27→17:49)
[2025-02-09] MEDS: chlorhexidine gluconate 0.12% Btl 473 mL 30 ML MUCOUS MEM ×4 (04:27→21:44)
[2025-02-09] MEDS: ATORVASTATIN 10 MG TABLET PO (04:27)
[2025-02-09 05:51] VITALS: BMI 36.7
[2025-02-09 07:21] VITALS: BP 125/79; PULSE 88; RESP 18; TEMP 36.8; O2SAT 97
--- NOTE | 2025-02-09 09:38 | PC.CHAP ---
Pastoral Care Encounter/Spiritual Assessment Type of Contact [] Declined harbor police launch commander visit [] Patient/Family/Request visit [] Outpatient visit [] Follow-up visit [] Physician referral [] Code/Alert [x] Routine visit [] Staff referral [] Actively dying [] Patient sleeping [] Family support [] [] Out of room [] Palliative care [] [] Receiving care in room [] Pre-surgical visit [] Trauma [] Long length of stay [] ICU visit [] Other: Relational/Emotional Strength [x] Patient feels connected with others/family/visitors/staff [] Distress [] Loneliness/isolation [] Abandonment Spirituality of Patient [x] Person of [place] [] Attends Sikhism of their [place] [x] Believes in Prayer [] Reads Bible or Nondenominational materials [] There are Spiritual issues to be addressed Soil Expert Interventions [x] Prayer [x Active listening [] Non-anxious presence [x] Spiritual/emotional support [] Crisis/trauma care [] Spiritual counseling [] Bereavement support [] Provided bereavement packet [] Provided Bible/devotional materials [] Provided toy/stuffed animal, coloring book to patient or family member [] Provided Communion [] Anointing/Wall [] Salvation [x] Completed spiritual assessment [] Other: Impact on Illness or Injury [] Angry [] Fearful [] Anxious [] Often cries [] Exhaustion [] Unable to work [] Unable to attend buddhism [] Unable to walk/stand [] Unable to read [] Unable to drive [] Unable to eat/drink [] Unable to sleep [] Unable to be with family [] Patient intubated [] Other: Summary Time spent with patient 5 min
[2025-02-09 10:53] VITALS: BP 113/78; PULSE 95; RESP 16; TEMP 36.6; O2SAT 97
--- NOTE | 2025-02-09 12:54 | P.PN_ITS ---
Subjective 2 Subjective: Patient postop day 1 after right total hip arthroplasty. He is doing well states ambulating today was good. Still having some pain control issues. Patient and family are requesting senior living placement for short-term stay. Has no complaints today. Vitals/I&O/Wt Last Vital Signs Temp 97.8 F 02/09/25 10:53 Pulse 95 02/09/25 10:53 Resp 16 02/09/25 10:53 BP 113/78 02/09/25 10:53 Pulse Ox 97 02/09/25 10:53 O2 Del Method Room Air 02/09/25 10:53 02/08/25 02/09/25 02/09/25 22:59 06:59 14:59 Intake Total 1460 / 2460 1000 / 1000 Output Total 250 / 550 250 / 800 Balance 1210 / 1910 -250 / 1660 1000 / 1000 Weight last 48 hrs Weight 249 lb Weight 249 lb Physical Exam 2 Narrative: On exam today patient is resting in his recliner. Dressings are clear. He is neurovasc intact distally in the right lower extremity. Urinary Catheter Management: Montanez: Cath Placed During This Visit: yes, but has since been removed by the nurse Reason for Continuing Indwelling Catheter: Perioperative Use in Selected Surgeries Urinary Catheter Date of Insertion: 02/08/25 Urinary Catheter Time of Insertion: 10:00 Date Urinary Catheter Removed: 02/09/25 Time Urinary Catheter Discontinued: 05:27 Data 02/09/25 01:46 02/09/25 01:46 A&P Assessment and plan 1. Status post total replacement of right hip: Patient postop day #1 after right total hip arthroplasty. Labs are stable. Patient is slowly progressing with physical therapy. Patient being taught hip precautions and warned by myself about this. Plan at this time is for short- term rehab placement. Plan: Plan at this time is to continue pain control and physical therapy while he is here in apply for short-term senior living placement PDMP PDMP Reviewed: Not Reviewed Attestations 2 Medical Necessity Statement*: Patient is still in need of pain control and further physical therapy for ambulatory status Coding Level of Care Code Acute Code for Chg Fwd Diagnoses Status post total replacement of right hip Z96.641 Laterality: right
[2025-02-09 15:33] VITALS: BP 128/86; PULSE 73; RESP 16; TEMP 36.8; O2SAT 96
[2025-02-09 20:00] VITALS: BP 148/95; PULSE 101; RESP 18; TEMP 36.7; O2SAT 98
[2025-02-09] MEDS: MELATONIN 3 MG TABLET PO (20:46)
[2025-02-09] MEDS: pantoprazole 40 mg SDV IVP (20:47)
[2025-02-10] VITALS: BP 115/77; PULSE 90; RESP 16; TEMP 36.5; O2SAT 97
[2025-02-10 04:00] VITALS: BP 147/92; PULSE 100; RESP 18; TEMP 36.7; O2SAT 97
[2025-02-10] MEDS: sennosides-docusate Tablet 2 TAB PO (04:27)
[2025-02-10] MEDS: ATORVASTATIN 10 MG TABLET PO (04:28)
[2025-02-10] MEDS: HYDROcodone-acetaminophen 5-325 mg Tablet 1 TAB PO (04:28)
[2025-02-10] MEDS: mupirocin oint 22 gm 1 APPLIC NASAL (04:29)
[2025-02-10] MEDS: multivitamin therapeutic Tablet 1 TAB PO (04:29)
[2025-02-10] MEDS: chlorhexidine gluconate 0.12% Btl 473 mL 30 ML MUCOUS MEM ×2 (04:29→12:19)
[2025-02-10 05:40] LABS: Hematocrit 32.4 % (37-53); Hemoglobin 10.50 g/dL (11.27-16.99); Mean Corpuscular HGB Conc 32.4 g/dL (30-55); Mean Corpuscular Hemoglobin 30.7 pg (27-33); Mean Corpuscular Volume 94.7 fl (82-101); Nucleated Red Blood Cells % 0 %; Platelet Count 220 10^3/cmm (157-399); Red Blood Count 3.42 10^6/uL (3.85-5.65); White Blood Count 12.95 10^3/uL (3.29-11.43)
[2025-02-10 05:46] VITALS: BMI 36.7
[2025-02-10 07:56] VITALS: BP 120/77; PULSE 90; RESP 16; TEMP 36.4; O2SAT 98
[2025-02-10 11:42] VITALS: BP 135/87; PULSE 101; RESP 17; TEMP 36.8; O2SAT 99
--- NOTE | 2025-02-10 14:41 | PM.DCS ---
Discharge Providers Date of Admission: 02/08/25 11:47 Date of Discharge: February 10, 2025 Attending Provider at Admission: Blair Perez MD Attending Provider at Discharge: Blair Perez MD Primary Care Provider: SILAS Martinez Diagnoses at Discharge Discharge Diagnosis 1. Status post total replacement of right hip: Reason for Visit Reason for Visit: M25.551 Hospital Course Hospital Course Patient admitted on 02/08/2025 and has progressed very well over the course of the last 3 days with physical therapy and pain control. Physical Exam Urinary Catheter Management: Montanez: Cath Placed During This Visit: yes, but has since been removed by the nurse Reason for Continuing Indwelling Catheter: Perioperative Use in Selected Surgeries Urinary Catheter Date of Insertion: 02/08/25 Urinary Catheter Time of Insertion: 10:00 Date Urinary Catheter Removed: 02/09/25 Time Urinary Catheter Discontinued: 05:27 Discharge Data Studies Completed and Pending Completed Studies During Hospitalization Category Date Time Status XR pelvis 1-2V* [id number] Routine Exams 02/08/25 11:26 Completed Radiology Impressions Pelvis X-Ray 02/08/25 11:26 Impression: Right hip arthroplasty. Laboratory Results WBC 12.95 10^3/uL (3.29-11.43) H 02/10/25 05:28 RBC 3.42 10^6/uL (3.85-5.65) L 02/10/25 05:28 Hgb 10.50 g/dL (11.27-16.99) L 02/10/25 05:28 Hct 32.4 % (37-53) L 02/10/25 05:28 MCV 94.7 fl (82-101) 02/10/25 05:28 MCH 30.7 pg (27-33) 02/10/25 05:28 MCHC 32.4 g/dL (30-55) 02/10/25 05:28 RDW 14.1 % (12.1-15.1) 02/10/25 05:28 Plt Count 220 10^3/cmm (157-399) 02/10/25 05:28 MPV 12.0 fL (7.4-10.4) H 02/10/25 05:28 Neut % (Auto) 77.1 % 02/10/25 05:28 Lymph % (Auto) 11.8 % 02/10/25 05:28 [place] % (Auto) 10.1 % 02/10/25 05:28 Eos % (Auto) 0.3 % 02/10/25 05:28 Baso % (Auto) 0.3 % 02/10/25 05:28 Neut # (Auto) 9.98 10^3/uL (1.8-7.7) H 02/10/25 05:28 Lymph # (Auto) 1.5 10^3/uL (0.8-4.8) 02/10/25 05:28 [place] # (Auto) 1.3 10^3/uL (0.2-0.9) H 02/10/25 05:28 Eos # (Auto) 0.0 10^3/uL (0.0-0.8) 02/10/25 05:28 Baso # (Auto) 0.0 10^3/uL (0.0-0.1) 02/10/25 05:28 Nucleated RBC % (auto) 0 % 02/10/25 05:28 Nucleated RBCs # 0.0 /100WBC 02/10/25 05:28 Sodium 138 mmol/L (136-145) 02/09/25 01:46 Potassium 4.2 mmol/L (3.5-5.1) 02/09/25 01:46 Chloride 104 mmol/L (98-107) 02/09/25 01:46 Carbon Dioxide 24 mmol/L (22-29) 02/09/25 01:46 Anion Gap 14.2 (5-19) 02/09/25 01:46 BUN 17 mg/dL (8-23) 02/09/25 01:46 Creatinine 1.1 mg/dL (0.7-1.2) 02/09/25 01:46 GFR Calculation 67.6 mL/min (90-130) L 02/09/25 01:46 Glucose 109 mg/dL (65-115) 02/09/25 01:46 POC Glucose 99 mg/dL (70-110) 02/10/25 06:45 Calculated Osmolality 288 mOsm/kg (285-295) 02/09/25 01:46 Calcium 8.8 mg/dL (8.5-10.5) 02/09/25 01:46 Vitals Last Vital Signs Temp 98.2 F 02/10/25 11:42 Pulse 101 H 12/19/25 11:42 Resp 17 02/10/25 11:42 BP 135/87 02/10/25 11:42 Pulse Ox 99 02/10/25 11:42 O2 Del Method Room Air 02/10/25 11:42 Discharge Plan Discharge Patient Disposition: Xfer SNF Condition: Stable Prescriptions: New hydrocodone-acetaminophen 5-325 mg tablet 1 tab PO Q6H PRN (Reason: pain) Qty: 30 0RF Continued (DME) blood-glucose meter [Blood Glucose Monitoring] Kit See Rx Instructions .ROUTE .MEDSUPPLY Qty: 1 0RF Rx Instructions: As directed, once daily (DME) Blood Glucose Test Strip See Rx Instructions .ROUTE .MEDSUPPLY Qty: 100 11RF Rx Instructions: As directed, twice daily (DME) lancets [BD Ultra Fine Lancets] 33 gauge misc See Rx Instructions .ROUTE .MEDSUPPLY Qty: 100 0RF Rx Instructions: As directed, twice daily diphenhydramine HCl [Benadryl] 25 mg capsule 25 mg PO TID PRN (Reason: Sleep) acetaminophen 500 mg capsule 1,000 mg PO Q6H PRN (Reason: Pain) ibuprofen 800 mg tablet 800 mg PO BID PRN (Reason: pain) 30 Days Qty: 60 5RF omeprazole 20 mg capsule,delayed release(DR/EC) 20 mg PO DAILY 30 Days Qty: 30 5RF metformin 500 mg tablet 500 mg PO BID 30 Days Qty: 60 5RF lisinopril 40 mg tablet 40 mg PO DAILY 30 Days Qty: 30 5RF levothyroxine [Synthroid] 50 mcg tablet 50 mcg PO DAILY 30 Days Qty: 30 5RF duloxetine 60 mg capsule,delayed release(DR/EC) 60 mg PO BID Qty: 60 5RF atorvastatin [Lipitor] 10 mg tablet 10 mg PO DAILY 30 Days Qty: 30 5RF aspirin 81 mg Tablet 81 mg PO DAILY celecoxib 200 mg capsule 200 mg PO BID Rx Instructions: TAKE ONE CAPSULE BY MOUTH TWICE DAILY Discharge Order = DC NOW: Discharge Order (Routine); Ordered 02/10/25 Ordered By: Blair Perez Referrals: [facility] [Outside] Blair Perez MD [Physician, Orthopedics] - 3 weeks Discharge Diet: Advance as tolerated Discharge Activity: Increase activity as tolerated Patient Instructions: Hydrocodone/Acetaminophen (By mouth) (Vicodin, [place]), Acute Wound Care (DC), Opioid Safety, Post Anesthesia Care, Patient Portal & Jyoti Instructions Activity Restrictions/Additional Instructions: Physical therapy for continued ambulation and strengthening of right lower extremity Ice area often and as needed Up and ambulate daily Call with any concerns Discharge Attestations Time Spent in Discharge Care*: less than 30 min Quality Metrics Clinical Quality Measures [ No reported AMI, CVA or VTE this stay] Coding Level of Care Code Acute Code for Chg Fwd Diagnoses Status post total replacement of right hip Z96.641 Laterality: right
--- NOTE | 2025-02-10 14:59 | P.DS_ITS ---
Discharge Providers Date of Admission: 02/08/25 11:47 Date of Discharge: February 10, 2025 Attending Provider at Admission: Blair Perez MD Attending Provider at Discharge: Blair Perez MD Primary Care Provider: SILAS Matrinez Diagnoses at Discharge Discharge Diagnosis 1. Status post total replacement of right hip: Details from hospital stay: Patient was admitted on 02 08 2025 for the above-stated procedure. He tolerated this well. He was held overnight for observation however still needed pain medication and further physical therapy. There is also concerns about him going home that there is not reliable help there. His is there but is not unable to help lift him or help move him at all because of his size. He was held in the hospital to continue on with physical therapy and pain control and requested put in for short-term rehab stay. This is subsequently been approved. Patient is doing well with physical therapy as of today. Pain is under control with oral pain medication. Reason for Visit Reason for Visit: M25.551 Hospital Course Hospital Course Patient admitted on 02/08/2025 and has progressed very well over the course of the last 3 days with physical therapy and pain control. Physical Exam Narrative: On exam today he is in his recliner. His dressings are clear. No other abnormalities noted. He is neurovasc intact distally of the right lower extremity. Urinary Catheter Management: Montanez: Cath Placed During This Visit: yes, but has since been removed by the nurse Reason for Continuing Indwelling Catheter: Perioperative Use in Selected Surgeries Urinary Catheter Date of Insertion: 02/08/25 Urinary Catheter Time of Insertion: 10:00 Date Urinary Catheter Removed: 02/09/25 Time Urinary Catheter Discontinued: 05:27 Discharge Data Studies Completed and Pending Completed Studies During Hospitalization Category Date Time Status XR pelvis 1-2V* [id number] Routine Exams 02/08/25 11:26 Completed Radiology Impressions Pelvis X-Ray 02/08/25 11:26 Impression: Right hip arthroplasty. Laboratory Results WBC 12.95 10^3/uL (3.29-11.43) H 02/10/25 05:28 RBC 3.42 10^6/uL (3.85-5.65) L 02/10/25 05:28 Hgb 10.50 g/dL (11.27-16.99) L 02/10/25 05:28 Hct 32.4 % (37-53) L 02/10/25 05:28 MCV 94.7 fl (82-101) 02/10/25 05:28 MCH 30.7 pg (27-33) 02/10/25 05:28 MCHC 32.4 g/dL (30-55) 02/10/25 05:28 RDW 14.1 % (12.1-15.1) 02/10/25 05:28 Plt Count 220 10^3/cmm (157-399) 02/10/25 05:28 MPV 12.0 fL (7.4-10.4) H 02/10/25 05:28 Neut % (Auto) 77.1 % 02/10/25 05:28 Lymph % (Auto) 11.8 % 02/10/25 05:28 [place] % (Auto) 10.1 % 02/10/25 05:28 Eos % (Auto) 0.3 % 02/10/25 05:28 Baso % (Auto) 0.3 % 02/10/25 05:28 Neut # (Auto) 9.98 10^3/uL (1.8-7.7) H 02/10/25 05:28 Lymph # (Auto) 1.5 10^3/uL (0.8-4.8) 02/10/25 05:28 [place] # (Auto) 1.3 10^3/uL (0.2-0.9) H 02/10/25 05:28 Eos # (Auto) 0.0 10^3/uL (0.0-0.8) 02/10/25 05:28 Baso # (Auto) 0.0 10^3/uL (0.0-0.1) 02/10/25 05:28 Nucleated RBC % (auto) 0 % 02/10/25 05:28 Nucleated RBCs # 0.0 /100WBC 02/10/25 05:28 Sodium 138 mmol/L (136-145) 02/09/25 01:46 Potassium 4.2 mmol/L (3.5-5.1) 02/09/25 01:46 Chloride 104 mmol/L (98-107) 02/09/25 01:46 Carbon Dioxide 24 mmol/L (22-29) 02/09/25 01:46 Anion Gap 14.2 (5-19) 02/09/25 01:46 BUN 17 mg/dL (8-23) 02/09/25 01:46 Creatinine 1.1 mg/dL (0.7-1.2) 02/09/25 01:46 GFR Calculation 67.6 mL/min (90-130) L 02/09/25 01:46 Glucose 109 mg/dL (65-115) 02/09/25 01:46 POC Glucose 99 mg/dL (70-110) 02/10/25 06:45 Calculated Osmolality 288 mOsm/kg (285-295) 02/09/25 01:46 Calcium 8.8 mg/dL (8.5-10.5) 02/09/25 01:46 Procedures Performed Right total hip arthroplasty Vitals Last Vital Signs Temp 98.2 F 02/10/25 11:42 Pulse 101 H 02/10/25 11:42 Resp 17 02/10/25 11:42 BP 135/87 02/10/25 11:42 Pulse Ox 99 02/10/25 11:42 O2 Del Method Room Air 02/10/25 11:42 Discharge Plan Discharge Patient Disposition: Xfer SNF Condition: Stable Prescriptions: New hydrocodone-acetaminophen 5-325 mg tablet 1 tab PO Q6H PRN (Reason: pain) Qty: 30 0RF Continued (DME) blood-glucose meter [Blood Glucose Monitoring] Kit See Rx Instructions .ROUTE .MEDSUPPLY Qty: 1 0RF Rx Instructions: As directed, once daily (DME) Blood Glucose Test Strip See Rx Instructions .ROUTE .MEDSUPPLY Qty: 100 11RF Rx Instructions: As directed, twice daily (DME) lancets [BD Ultra Fine Lancets] 33 gauge misc See Rx Instructions .ROUTE .MEDSUPPLY Qty: 100 0RF Rx Instructions: As directed, twice daily diphenhydramine HCl [Benadryl] 25 mg capsule 25 mg PO TID PRN (Reason: Sleep) acetaminophen 500 mg capsule 1,000 mg PO Q6H PRN (Reason: Pain) ibuprofen 800 mg tablet 800 mg PO BID PRN (Reason: pain) 30 Days Qty: 60 5RF omeprazole 20 mg capsule,delayed release(DR/EC) 20 mg PO DAILY 30 Days Qty: 30 5RF metformin 500 mg tablet 500 mg PO BID 30 Days Qty: 60 5RF lisinopril 40 mg tablet 40 mg PO DAILY 30 Days Qty: 30 5RF levothyroxine [Synthroid] 50 mcg tablet 50 mcg PO DAILY 30 Days Qty: 30 5RF duloxetine 60 mg capsule,delayed release(DR/EC) 60 mg PO BID Qty: 60 5RF atorvastatin [Lipitor] 10 mg tablet 10 mg PO DAILY 30 Days Qty: 30 5RF aspirin 81 mg Tablet 81 mg PO DAILY celecoxib 200 mg capsule 200 mg PO BID Rx Instructions: TAKE ONE CAPSULE BY MOUTH TWICE DAILY Discharge Order = DC NOW: Discharge Order (Routine); Ordered 02/10/25 Ordered By: Blair Perez Referrals: [facility] [Outside] Blair Perez MD [Physician, Orthopedics] - 3 weeks Discharge Diet: Advance as tolerated Discharge Activity: Increase activity as tolerated Patient Instructions: Hydrocodone/Acetaminophen (By mouth) (Vicodin, [place]), Acute Wound Care (DC), Opioid Safety, Post Anesthesia Care, Patient Portal & Jyoti Instructions Activity Restrictions/Additional Instructions: Physical therapy for continued ambulation and strengthening of right lower extremity Ice area often and as needed Up and ambulate daily Call with any concerns Discharge Attestations Time Spent in Discharge Care*: less than 30 min Quality Metrics Clinical Quality Measures [ No reported AMI, CVA or VTE this stay] Coding Level of Care Code Acute Code for Chg Fwd Diagnoses Status post total replacement of right hip Z96.641 Laterality: right
[2025-02-10 15:49] VITALS: BP 135/87; PULSE 101; RESP 17; TEMP 36.8; O2SAT 99
== END 2025-02-10 15:50 | disposition skilled nursing facility (03) ==
LOC: MEDSURG 11:48
PROVIDERS: Admitting Provider Orthopaedic Surgery; PCP Nurse Practitioner Family; Visit Provider Orthopaedic Surgery
PROC: (CPT 27130; principal; 2025-02-08 09:25)
DX: M16.11 Unilateral primary osteoarthritis, right hip (principal); I10 Essential (primary) hypertension; E11.9 Type 2 diabetes mellitus without complications; E03.9 Hypothyroidism, unspecified; K21.9 Gastro-esophageal reflux disease without esophagitis; Z79.82 Long term (current) use of aspirin; Z79.84 Long term (current) use of oral hypoglycemic drugs; E66.9 Obesity, unspecified; Z68.36 Body mass index [BMI] 36.0-36.9, adult; F41.9 Anxiety disorder, unspecified; F17.200 Nicotine dependence, unspecified, uncomplicated
CPT/HCPCS: 27130; 36415; 36416; 51702; 72170; 80048; 82962; 85025; 97116; 97161; 97167; 97530; 97535; C1776 ×2; G0378; J0330; J0666; J0690; J1100; J1885; J2250; J2405; J2470; J2704; J2795; J3010; J3490; J7030; J9999